=== PATIENT | male | born 1970 | race Caucasian/White ===

== ENCOUNTER 2018-06-17 03:19 | Emergency (ER) | payer MEDICAID, SELFPAY ==
[2018-06-17 03:20] VITALS: BP 150/110; PULSE 102; RESP 18; TEMP 36.9; O2SAT 96; BMI 32.3
[2018-06-17] MEDS: HYDROcodone Bitartrate/Apap 5/325 Tablet PO (03:41)
[2018-06-17] MEDS: Cephalexin 250 MG Capsule 500 MG PO (03:41)
[2018-06-17] MEDS: Smz/Tmp Ds Tablet 1 TABLET PO (03:41)
[2018-06-17] MEDS: Naproxen 500 MG Tablet PO (03:44)
--- NOTE | 2018-06-17 03:49 | ED.VISSUMM ---
- ER Visit Summary Date of Service: 06/17/18 Chief Complaint: Left knee pain and swelling History of Present Illness: The patient is a 48 M noted dry skin to his anterior knees. He started picking or scratching at the left anterior knee 2 days ago. Later that night the area became red and swollen. He tried to open the skin with a needle earlier tonight thinking there is an abscess. He has not had fever or chills. Physical Examination: Blood pressure is 150/110, temperature 98.4, heart rate 102, respiratory rate 18, pulse ox 96% on room air. Patient sitting upright in bed no acute distress. Heart is regular rate and rhythm. Lung sounds are clear. Abdomen is soft nontender. Left lower extremity examination reveals erythema and mild edema of the left anterior knee overlying the inferior patellar tendon. Area measures approximately 5 x 3 cm. Erythema does not extend onto the calf or up into the thigh. No lymphangitic streaking is noted. He has no tenderness along the joint line of the knee. He has good range of motion at the knee itself with no sign of infection in the knee joint. Test Results: [] Emergency Department Course and Treatment: Bedside ultrasound was performed and it is not reveal a focal fluid collection. Patient is treated with 1 tab of [place], Naprosyn, Bactrim, and Keflex. He will be treated with antibiotics and pain control. If symptoms worsen he is to return for repeat evaluation. Treatment Plan: [] Disposition: Discharge Impression: Cellulitis left knee This note was generated with [employer] dictation software. It may contain incorrect words, spelling, and punctuation that were not noted in review of the chart prior to signing ED Disposition - Plan for ED Patient: Chief Complaint: Lower Extremity Injury Referrals: Care Physician,No Primary [Primary Care Provider] -
--- NOTE | 2018-06-17 03:51 | ED.DEP ---
ED Disposition - Plan for ED Patient: Disposition: Home or Assisted Living Chief Complaint: Lower Extremity Injury Instructions: ED Infec Skin Cellulitis Prescriptions: Cephalexin [Keflex] 500 mg PO Q6 #40 capsule Hydrocodone/Acetaminophen [[place] 5-325 Tablet] 1 - 2 each PO 4X/DAY PRN PRN 3 Days #12 tablet PRN Reason: Pain Naproxen [Naprosyn] 500 mg PO BID PRN #20 tablet Smz/Tmp Ds [Bactrim Ds] 1 tablet PO BID #20 tablet Referrals: Leonidas Rodriguez MD [STAFF PHYSICIAN] - 3-5 Days if not improving
--- NOTE | 2018-06-17 03:54 | DCINST.ED_ITS ---
ED Disposition - Plan for ED Patient: Disposition: Home or Assisted Living Chief Complaint: Lower Extremity Injury Instructions: ED Infec Skin Cellulitis Prescriptions: Cephalexin [Keflex] 500 mg PO Q6 #40 capsule Hydrocodone/Acetaminophen [[place] 5-325 Tablet] 1 - 2 each PO 4X/DAY PRN PRN 3 Days #12 tablet PRN Reason: Pain Naproxen [Naprosyn] 500 mg PO BID PRN #20 tablet Smz/Tmp Ds [Bactrim Ds] 1 tablet PO BID #20 tablet Referrals: Leonidas Rodriguez MD [STAFF PHYSICIAN] - 3-5 Days if not improving
[2018-06-17 04:12] VITALS: RESP 18
== END 2018-06-17 04:50 | disposition home or self-care (01) ==
PROVIDERS: Emergency Provider Emergency Medicine
DX: L03.116 Cellulitis of left lower limb (principal); Z72.0 Tobacco use
CPT/HCPCS: 99283

== ENCOUNTER 2018-09-01 08:57 | Emergency (ER) | payer MEDICAID, SELFPAY ==
[2018-09-01 08:58] VITALS: BP 139/89; PULSE 91; RESP 16; TEMP 36.8; O2SAT 98; BMI 34.1
--- NOTE | 2018-09-01 09:16 | ED.DCSUM_ITS ---
- ER Visit Summary Date of Service: 09/01/18 Chief Complaint: Cough and congestion History of Present Illness: The patient is a 48 M history of a smoker 1 pack/day. Otherwise no significant past medical history. Patient states for 1 week he has had a cough and congestion. Coughing up green phlegm. Night sweats. He denies any hemoptysis. No chest pain other than rib cage discomfort with coughing. States he does not getting any better. Physical Examination: Middle-aged male. No acute distress. Vital signs are stable. He is afebrile. His pulse ox is 98% on room air no hypoxia. H EENT exam TMs are normal. Posterior pharynx moist and pink. No erythema or exudate. No trouble swallowing or breathing. No drooling or stridor. Nasal congestion. Neck nontender. No lymphadenopathy. Lungs coarse breath sounds but no rales, rhonchi or wheezing. Equal and symmetrical. Heart regular rate and rhythm no murmur. Abdomen soft and nontender. Normal bowel sounds no peritoneal signs. Patient is moving all 4 extremities are neurovascularly intact. Calves are nontender without edema or cords. Neurologically he is awake and alert. Back is nontender. Skin is unremarkable. Test Results: None. Clinically I did not feel he needed a x-ray and patient was comfortable with that plan. Emergency Department Course and Treatment: Patient has bronchitis. He has had this a week and is not improving and may even be getting worse. Clinically I do not hear pneumonia. He is a smoker. Due to the fact that he is a smoker and is not improving I will start him on Zithromax Z-LINDA. Treatment Plan: Zithromax. Stop smoking. Follow-up if not improving. Disposition: Discharge Impression: Acute bronchitis Tobacco abuse This note was generated with [employer] dictation software. It may contain incorrect words, spelling, and punctuation that were not noted in review of the chart prior to signing ED Disposition - Plan for ED Patient: Chief Complaint: Cold Sx Referrals: Care Physician,No Primary [Primary Care Provider] -
--- NOTE | 2018-09-01 09:16 | ED.DEP ---
ED Disposition - Plan for ED Patient: Disposition: Home or Assisted Living Chief Complaint: Cold Sx Instructions: ED Upper Resp Infec Abx Tx Prescriptions: Azithromycin [Zithromax Z-Gary] 250 mg PO UD #1 box Referrals: Care Physician,No Primary [Primary Care Provider] - 1 Week if not improving Additional Instructions: Absolutely positively need to stop smoking. Zithromax 2 pills the first day and then 1 pill a day until gone. Plenty of fluids and rest. Follow-up your doctor if not improving in 1 week.
--- OUTSIDE RECORDS SUMMARY | 2018-10-25 22:42 | XMS RPT_ITS ---
:1970 Author Organization [facility] Care Team Providers Name Role Phone Primay Care Physicia, No Primary Care Unavailable Patito Burnett Attending Unavailable Primay Care Physicia, No Primary Care Unavailable Kevin Verdugo Attending Unavailable PROBLEMS PROBLEMS DATE TYPE CONDITION / CODE ATTENDING STATUS SOURCE 06/17/2018 Unknown L03.116 - Patito Burnett Active [facility] Cellulitis of [facility] left lower limb / Hospital L03.116(ICD-10) Repository PROCEDURES PROCEDURES No Procedure Records FoundRESULTS RESULTS EMERGENCY DEPARTMENT Observed: 09/01/2018 Status: F Source: [place] SUMMARY 4:37 PM [facility] REPOSITORY [facility] Medical Records Department [address] [place] [address] Emergency Department Summary 09/01/18 0913 MR#: [id number] Acct: [id number] Name: MAULIK ELIZONDO III Rep #: [id number] : 1970 48 From: Kevin Verdugo MD PCP: Care Physician, No Primary Status: DEP ER - ER Visit Summary Date of Service: 09/01/18 Chief Complaint: Cough and congestion History of Present Illness: The patient is a 48 M history of a smoker 1 pack/day. Otherwise no significant past medical history. Patient states for 1 week he has had a cough and congestion. Coughing up green phlegm. Night sweats. He denies any hemoptysis. No chest pain other than rib cage discomfort with coughing. States he does not getting any better. Physical Examination: Middle-aged male. No acute distress. Vital signs are stable. He is afebrile. His pulse ox is 98% on room air no hypoxia. H EENT exam TMs are normal. Posterior pharynx moist and pink. No erythema or exudate. No trouble swallowing or breathing. No drooling or stridor. Nasal congestion. Neck nontender. No lymphadenopathy. Lungs coarse breath sounds but no rales, rhonchi or wheezing. Equal and symmetrical. Heart regular rate and rhythm no murmur. Abdomen soft and nontender. Normal bowel sounds no peritoneal signs. Patient is moving all 4 extremities are neurovascularly intact. Calves are nontender without edema or cords. Neurologically he is awake and alert. Back is nontender. Skin is unremarkable. Test Results: None. Clinically I did not feel he needed a x-ray and patient was comfortable with that plan. Emergency Department Course and Treatment: Patient has bronchitis. He has had this a week and is not improving and may even be getting worse. Clinically I do not hear pneumonia. He is a smoker. Due to the fact that he is a smoker and is not improving I will start him on Zithromax Z-GARY. Treatment Plan: Zithromax. Stop smoking. Follow-up if not improving. Disposition: Discharge Impression: Acute bronchitis Tobacco abuse This note was generated with [employer] dictation software. It may contain incorrect words, spelling, and punctuation that were not noted in review of the chart prior to signing ED Disposition - Plan for ED Patient: Chief Complaint: Cold Sx Referrals: Care Physician,No Primary [Primary Care Provider] - What to do if you have Problems For any increased pain, shortness of breath, bleeding, nausea or vomiting, chest pain, or any unexpected problems, contact your Primary Care Provider. Call [facility] ([phone]) or report to the closest Emergency Room. Call 911 if necessary. 09/01/18 9188 <Electronically signed by Kevin Verdugo MD> Date Kevin Verdugo MD Cosigner Signature (If Indicated): Date CC: No Primary Care Physician DISCHARGE INSTRUCTION Observed: 09/01/2018 Status: F Source: WADE 4:37 PM [facility] Medical Records Department [address] [place] [address] Discharge Instruction 09/01/18 0916 MR#: [id number] Acct: [id number] Name: MAULIK ELIZONDO III Rep #: [id number] : 1970 48 From: Kevin Verdugo MD PCP: Care Physician, No Primary Status: DEP ER ED Disposition - Plan for ED Patient: Disposition: Home or Assisted Living Chief Complaint: Cold Sx Instructions: ED Upper Resp Infec Abx Tx Prescriptions: Azithromycin [Zithromax Z-Gary] 250 mg PO UD #1 box Referrals: Care Physician,No Primary [Primary Care Provider] - 1 Week if not improving Additional Instructions: Absolutely positively need to stop smoking. Zithromax 2 pills the first day and then 1 pill a day until gone. Plenty of fluids and rest. Follow-up your doctor if not improving in 1 week. What to do if you have Problems For any increased pain, shortness of breath, bleeding, nausea or vomiting, chest pain, or any unexpected problems, contact your Primary Care Provider. Call [facility] ([phone]) or report to the closest Emergency Room. Call 911 if necessary. 09/01/18 7647 <Electronically signed by Kevin Verdugo MD> Date Kevin Verdugo MD Cosigner Signature (If Indicated): Date CC: No Primary Care Physician EMERGENCY DEPARTMENT Observed: 06/17/2018 Status: F Source: [place] SUMMARY 8:26 AM [facility] Medical Records Department [address] [place] [address] Emergency Department Summary 06/17/18 0349 MR#: [id number] Acct: [id number] Name: MAULIK ELIZONDO III Rep #: [id number] : 1970 48 From: Patito Burnett MD PCP: Care Physician, No Primary Status: DEP ER - ER Visit Summary Date of Service: 06/17/18 Chief Complaint: Left knee pain and swelling History of Present Illness: The patient is a 48 M noted dry skin to his anterior knees. He started picking or scratching at the left anterior knee 2 days ago. Later that night the area became red and swollen. He tried to open the skin with a needle earlier tonight thinking there is an abscess. He has not had fever or chills. Physical Examination: Blood pressure is 150/110, temperature 98.4, heart rate 102, respiratory rate 18, pulse ox 96% on room air. Patient sitting upright in bed no acute distress. Heart is regular rate and rhythm. Lung sounds are clear. Abdomen is soft nontender. Left lower extremity examination reveals erythema and mild edema of the left anterior knee overlying the inferior patellar tendon. Area measures approximately 5 x 3 cm. Erythema does not extend onto the calf or up into the thigh. No lymphangitic streaking is noted. He has no tenderness along the joint line of the knee. He has good range of motion at the knee itself with no sign of infection in the knee joint. Test Results: [] Emergency Department Course and Treatment: Bedside ultrasound was performed and it is not reveal a focal fluid collection. Patient is treated with 1 tab of [place], Naprosyn, Bactrim, and Keflex. He will be treated with antibiotics and pain control. If symptoms worsen he is to return for repeat evaluation. Treatment Plan: [] Disposition: Discharge Impression: Cellulitis left knee This note was generated with [employer] dictation software. It may contain incorrect words, spelling, and punctuation that were not noted in review of the chart prior to signing ED Disposition - Plan for ED Patient: Chief Complaint: Lower Extremity Injury Referrals: Care Physician,No Primary [Primary Care Provider] - What to do if you have Problems For any increased pain, shortness of breath, bleeding, nausea or vomiting, chest pain, or any unexpected problems, contact your Primary Care Provider. Call [facility] ([phone]) or report to the closest Emergency Room. Call 911 if necessary. 06/17/18825 <Electronically signed by Patito Burnett MD> Date Patito Burnett MD Cosigner Signature (If Indicated): Date CC: No Primary Care Physician DISCHARGE INSTRUCTION Observed: 06/17/2018 Status: F Source: [place] 3:54 AM [facility] Medical Records Department [address] [place] [address] [place] [address] Discharge Instruction 06/17/18 035 MR#: [id number] Acct: [id number] Name: MAULIK ELIZONDO III Rep #: [id number] : 1970 48 From: Patito Burnett MD PCP: Care Physician, No Primary Status: REG ER ED Disposition - Plan for ED Patient: Disposition: Home or Assisted Living Chief Complaint: Lower Extremity Injury Instructions: ED Infec Skin Cellulitis Prescriptions: Cephalexin [Keflex] 500 mg PO Q6 #40 capsule Hydrocodone/Acetaminophen [[place] 5-325 Tablet] 1 - 2 each PO 4X/DAY PRN PRN 3 Days #12 tablet PRN Reason: Pain Naproxen [Naprosyn] 500 mg PO BID PRN #20 tablet Smz/Tmp Ds [Bactrim Ds] 1 tablet PO BID #20 tablet Referrals: Leonidas Rodriguez MD [STAFF PHYSICIAN] - 3-5 Days if not improving What to do if you have Problems For any increased pain, shortness of breath, bleeding, nausea or vomiting, chest pain, or any unexpected problems, contact your Primary Care Provider. Call [facility] ([phone]) or report to the closest Emergency Room. Call 911 if necessary. 06/17/18 0354 <Electronically signed by Patito Burnett MD> Date Patito Burnett MD Cosigner Signature (If Indicated): Date CC: No Primary Care Physician ALLERGIES ALLERGIES DATE TYPE / CODE NAME / CODE REACTION SEVERITY SOURCE 09/01/2018 Drug No Known Unknown [facility] Allergy/4160 Allergies/F00 [facility] [address](SNOMED [id number](RXNOR Repository CT) M) ENCOUNTERS ENCOUNTERS ADMIT/DISCHARGE ACCOUNT ADMITTING ENCOUNTER LOCATION SOURCE NUMBER CLASS 09/01/2018/ [id number] Emergency [address] ing:ED Repository 06/17/2018/ [id number] Emergency [address] ing:ED Repository PAYERS PAYERS ENCOUNTER GUARANTOR PAYER SUBSCRIBER SOURCE [facility]01/2018 [facility] [id number] BILLIAR Insurance:CARESOURCEP IIIDOB: [facility] Number: [id number] [address]Ied: [phone] [id number] Repository [phone] () Date:2018-09-01 [address]ATTN: [place] [address]ZF: 09/01/2018 Secondary NOT GIVENUNK [place] Insurance:SELF PAY [facility] Number: Effective Repository Date:2018-09-01 06/17/2018 MAULIK [facility] MAULIK ELIZONDO [facility] [id number] BILLIAR Insurance:CARESOURCEP IIIDOB: [facility] Number: [id number] Hospital [address]Onq: [phone] [id number] Repository [phone] () Date:2018-06-17P [address]ATTN: [place] [address]SJ: 06/17/2018 Secondary NOT GIVENUNK [facility] Insurance:SELF PAY [facility]: Effective Repository Date:2018-06-17
== END 2018-09-01 09:30 | disposition home or self-care (01) ==
LOC: ED 09:28
PROVIDERS: Emergency Provider Emergency Medicine
DX: J20.9 Acute bronchitis, unspecified (principal); F17.200 Nicotine dependence, unspecified, uncomplicated; R19.7 Diarrhea, unspecified
CPT/HCPCS: 99282

== ENCOUNTER 2019-04-25 01:34 | Emergency (ER) | payer MEDICAID, SELFPAY ==
[2019-04-25 01:35] VITALS: BP 139/94; PULSE 95; RESP 16; TEMP 36.8; O2SAT 97; BMI 32.3
--- NOTE | 2019-04-25 02:34 | ED.VISSUMM ---
- ER Visit Summary Date of Service: 04/25/19 Chief Complaint: Left leg wound History of Present Illness: The patient is a 49 M who presents with a left leg wound. He initially noted it yesterday. There is some surrounding redness and mild pain. He does not recall any injury but states that he was scratching the leg with the other foot recently and felt something. Physical Examination: Afebrile vitals unremarkable Patient has an open wound over the lateral left lower leg about a centimeter across with some surrounding erythema no drainage not hot to the touch no streaking Test Results: Not indicated Emergency Department Course and Treatment: Patient has an open wound with some surrounding cellulitis. We will treat with Keflex. She understands to return for new or worsening symptoms and was discharged home. Treatment Plan: [] Disposition: Discharge Impression: Left leg wound Cellulitis This note was generated with [employer] dictation software. It may contain incorrect words, spelling, and punctuation that were not noted in review of the chart prior to signing ED Disposition - Plan for ED Patient: Referrals: Care Physician,No Primary [Primary Care Provider] -
--- NOTE | 2019-04-25 02:35 | ED.DEP ---
ED Disposition - Plan for ED Patient: Instructions: Cellulitis Prescriptions: Cephalexin [Keflex] 500 mg PO Q6 #40 cap Prescription Printed Referrals: Care Physician,No Primary [Primary Care Provider] -
[2019-04-25 03:02] VITALS: RESP 16
== END 2019-04-25 03:03 | disposition home or self-care (01) ==
PROVIDERS: Emergency Provider Emergency Medicine
DX: L03.116 Cellulitis of left lower limb (principal); Z72.0 Tobacco use; S81.802A Unspecified open wound, left lower leg, initial encounter; X58.XXXA Exposure to other specified factors, initial encounter; Y93.89 Activity, other specified; Y92.9 Unspecified place or not applicable; Y99.9 Unspecified external cause status
CPT/HCPCS: 99282

== ENCOUNTER 2019-07-22 14:10 | Emergency (ER) | payer MEDICAID, SELFPAY ==
[2019-07-22 14:11] VITALS: BP 125/90; PULSE 86; RESP 20; TEMP 36.6; O2SAT 96; BMI 35.5
--- NOTE | 2019-07-22 14:51 | CT_ITS ---
STUDY: CT ABDOMEN AND PELVIS WITHOUT CONTRAST REASON FOR EXAM: Male, 49 years old. Nausea and vomiting. Weakness. Abdominal pain. RADIATION DOSAGE (If Supplied By Facility): CTDIvol = ( 13.95 ) mGy, DLP = ( 728.24 ) mGycm TECHNIQUE: Transaxial images were obtained from the dome of the diaphragm to the symphysis pubis without oral contrast, and without intravenous contrast. Sagittal and coronal images were reconstructed. Individualized dose optimization techniques were used for this CT. COMPARISON: Comparison is made with prior examination dated July 08, 2015. FINDINGS: Patchy airspace disease in the left lower lobe. The visualized portions of the heart are within normal limits. There is decreased attenuation of the liver consistent with steatosis. Normal gallbladder and extrahepatic biliary system. Normal spleen. Normal pancreas. There is a small, circumscribed, smooth, low attenuation left adrenal mass, consistent with an adrenal adenoma. This measures 1.7 cm x 3 cm. Normal right adrenal gland. Normal right kidney. Normal left kidney. Normal visualized stomach. Normal small intestine. Normal colon. The appendix is visualized and appears normal. There is scattered atherosclerotic calcification of the abdominal aorta, without a demonstrated aneurysm. Normal inferior vena cava. There is borderline retroperitoneal lymphadenopathy with enlarged nodes no greater than 10mm in the short axis diameter. Normal urinary bladder. There is a small umbilical hernia containing fat. Small bilateral inguinal hernias containing fat. Normal osseous structures. CT/Abdomen/Pelvis without Cont IMPRESSION: Patchy airspace disease in the left lower lobe. Small bilateral inguinal hernias containing fat as well as small umbilical hernia. Electronically Signed: Norris Garcia, at 15:39 EDT , Service support ,
[2019-07-22] MEDS: Ketorolac 15 MG/ML Vial IV (15:07)
[2019-07-22] MEDS: 0.9% Normal Saline 1,000 ML 1000 ML IV (15:07)
[2019-07-22] MEDS: Ondansetron 4 MG/2 ML Vial IV (15:07)
[2019-07-22 15:12] LABS: Absolute Lymphocyte Count 3.12 X10^3/uL (0.83-4.51); Absolute Neutrophil Count 6.8 X10^3/uL (2.0-7.7); Basophil# 0.06 X10^3/uL; Basophil% 0.5 % (0-1); Eosinophil# 0.35 X10^3/uL; Eosinophils% 3.1 % (0-5); Hematocrit 46.9 % (40-54); Hemoglobin 16.4 g/dL (13.0-16.5); Lymphocyte # 3.12 X10^3/ul (4.0); Lymphocyte % 27.8 % (19-41); Mean Corpuscular Hgb 31.5 pg (27.0-32.0); Mean Corpuscular Volume 90.2 fL (80-94); Mean Platelet Vol. 9.3 fl (6.2-12.0); NRBC Flagged by Analyzer 0 % (0-5); Neutrophil # 6.78 X10^3/uL (2.7-7.7); Neutrophil % 60.3 % (47-70); Platelet Count 270 K/mm3 (150-450); RBC Distribution Width CV 15.4 % (11.6-14.6); RBC Distribution Width SD 43.7 fl (35.1-43.9); White Blood Count 11.2 K/mm3 (4.4-11.0)
--- NOTE | 2019-07-22 15:21 | ED.DCSUM_ITS ---
History of Present Illness Chief Complaint: Nausea/Vomiting Narrative: Patient presenting for evaluation secondary to abdominal pain nausea vomiting. Patient reports that since yesterday after he ate at [employer] he has had intense abdominal pain with multiple episodes of nonbloody nonbilious emesis. Patient denies any diarrhea. He does endorse that he has been having subjective fevers and sweats. Patient states that he ate at [employer] with his daughter, who does not have similar symptoms at this time. No exacerbating relieving factors. Review of systems otherwise negative. Past Medical History - Allergies and Home Meds Allergies/Adverse Reactions: Allergies No Known Allergies Allergy (Verified 07/22/19 14:13) Primary Care Physician: Care Physician,No Primary [Primary Care Provider] - Past Medical History: None Smoking Status: Current every day smoker Review of Systems All systems negative except as indicated General: Reports: Fever, Malaise, Sweats Gastrointestinal: Reports: Abdominal pain, Nausea, Vomiting Physical Exam Vital Signs/Narrative: Vital Signs Temp Pulse Resp BP Pulse Ox 07/22/19 14:11 98 F 86 20 H 125/90 H 96 Inital Vital Signs reviewed: Yes General: Well nourished, Well developed, Acute Distress Head: Normocephalic, Atraumatic Eyes: Perrl, EOMI ENT: Moist mucous membranes, No rhinorrhea Neck: Supple, Nontender Cardiovascular: Regular rate, Regular rhythm, No murmurs Respiratory: No distress, CTA bilaterally, Chest nontender Abdomen: Nondistended, Normal bowel sounds, Tender - Diffuse nonlocalizing Back: Nontender, Normal Inspection Extremities: Nontender, No edema Skin: Normal color, No rash, Diaphoresis, - - Piloerection Neurological: Alert, Oriented x3, Cranial nerves II-XII grossly intact, Normal Strength, Normal Sensation Psychological: Normal affect, Normal Mood Diagnostic/Tx/Re-eval - Medical Decision Making Patient presented secondary to abdominal pain nausea and vomiting. On initial arrival the patient was diaphoretic and seems somewhat distressed. Patient was given Toradol and Zofran and fluids. Work-up including CBC CMP and lipase was grossly unremarkable with a modest elevation of the patient's lipase to 300, and leukocytosis of 11. CT abdomen and pelvis shows some fat-containing inguinal and ventral hernias with no other evidence of acute pathology. Repeat evaluation of the patient at 1600 showed significant improvement with the patien t laying comfortably in bed no longer diaphoretic, with a nonsurgical abdomen. At this point I believe the patient is safe and appropriate for discharge. Patient will be discharged with a course of Zofran. He was given signs and symptoms which to return. He voiced understanding was discharged. ED Disposition - Plan for ED Patient: Disposition: Home or Assisted Living Diagnosis: Gastroenteritis Instructions: FOOD POISONING or GASTROENTERITIS (4y-Adult) Prescriptions: Ondansetron [Zofran Odt] 4 mg PO Q8H PRN PRN #10 tab PRN Reason: Nausea Prescription Printed Referrals: Komal Everett [NON-STAFF] - As Needed
[2019-07-22 15:27] LABS: ALB/GLOB Ratio 0.9 RATIO (0.9-2.4); AST(SGOT) 32 U/L (15-37); Alanine Aminotransfer ALT/SGPT 57 U/L (16-61); Albumin, Serum 3.6 g/dL (3.2-5.0); Alkaline Phosphatase 91 U/L (45-117); Anion Gap 7 (5-15); BUN 15 mg/dL (7-18); BUN/Creat Ratio 15.5 RATIO (10-20); Calcium,Total 8.5 mg/dL (8.5-10.1); Chloride 106 mmol/L (98-107); Creatinine, Serum 0.97 mg/dL (0.70-1.30); EST Glomerular Filtration Rate 87 mL/min (>60); Est Glom Filt Rate - Afr Amer 105 mL/min (>60); Globulin 4.1 g/dL (2.2-4.2); Glucose 111 mg/dL (74-106); Lipase 394 U/L (73-393); Potassium 3.8 mmol/L (3.5-5.1); Protein, Total 7.7 g/dL (6.4-8.2); Sodium Level 138 mmol/L (136-145)
[2019-07-22 16:11] VITALS: BP 137/89; PULSE 94; RESP 16; O2SAT 97
== END 2019-07-22 16:57 | disposition home or self-care (01) ==
PROVIDERS: Emergency Provider Emergency Medicine
DX: K52.9 Noninfective gastroenteritis and colitis, unspecified (principal); K40.20 Bilateral inguinal hernia, without obstruction or gangrene, not specified as recurrent; K43.9 Ventral hernia without obstruction or gangrene; F17.200 Nicotine dependence, unspecified, uncomplicated
CPT/HCPCS: 74176; 80053; 83690; 85025; 96361; 96374; 96375; 99283; J7030; J2405

== ENCOUNTER 2019-07-24 07:34 | Emergency (ER) | payer MEDICAID, SELFPAY ==
[2019-07-24 07:36] VITALS: BP 137/93; PULSE 80; RESP 18; TEMP 36.7; O2SAT 94; BMI 33.7
--- NOTE | 2019-07-24 08:11 | ED.DCSUM_ITS ---
History of Present Illness Chief Complaint: Abd Pain Informant: Patient Onset: Days - 2-3 Context: Gradual Onset Timing: Intermittent Quality: ache Location: LUQ Current Severity: gone Maximum Severity: Severe Worsened by: nothing Relieved by: nothing in particular; just went away just prior to coming to ED Associated Symptoms: prod cough, dry heaving Narrative: Patient was seen here around 24 hours ago for similar symptoms. He states he abraham s been having a productive cough for 4 days or so, the left upper quadrant abdominal discomfort started later. He was up all night because of significant discomfort in his left upper quadrant area, but he states now for some reason it is gone. He denies any fevers or dyspnea, leg swelling, lower abdominal pain. He has had a poor appetite and is not eating much but he is able to pass fluids. He has not had a bowel movement in a couple days because he has not been eating much. Past Medical History - Allergies and Home Meds Allergies/Adverse Reactions: Allergies No Known Allergies Allergy (Verified 07/24/19 07:35) Primary Care Physician: Care Physician,No Primary [Primary Care Provider] - Smoking Status: Current every day smoker Review of Systems General: Reports: Malaise. Denies: Chills, Fever, Sweats Eyes: Denies: Visual changes - bilaterally, Diplopia ENT: Denies: Bilateral ear pain, Rhinorrhea, Sore throat Cardiovascular: Denies: Chest pain, Palpitations, Heart racing Respiratory: Reports: Cough, Sputum - phlegm, no blood. Denies: Dyspnea, Dyspnea on exertion Gastrointestinal: Reports: Abdominal pain, Nausea, Vomiting - dry heaves, - - anorexia. Denies: Diarrhea, Melena, Hematochezia Genitourinary: Denies: Dysuria, Hematuria, Frequency Musculoskeletal: Denies: Neck pain, Back pain, Swelling, Extremity Pain Skin: Denies: Rash, Wounds Neurological: Denies: Headache, Weakness, Numbness Physical Exam Vital Signs/Narrative: Vital Signs Temp Pulse Resp BP Pulse Ox 07/24/19 07:36 98.1 F 80 18 137/93 H 94 General: Well nourished, Well developed, No Acute Distress Head: Normocephalic, Atraumatic Eyes: Perrl, EOMI ENT: Moist mucous membranes, No rhinorrhea Neck: Supple, Nontender Cardiovascular: Regular rate, Regular rhythm, No murmurs Respiratory: No distress, Chest nontender, Rales - left base w/ occasional wheeze; otherwise, clear Abdomen: Soft, Nontender, Nondistended, Normal bowel sounds Back: Nontender, Normal Inspection Extremities: Nontender, No edema. Negative for: Calf Tenderness Skin: Normal color, No rash Neurological: Alert, Oriented x3, Cranial nerves II-XII grossly intact, Normal Strength, Normal Sensation, Normal Gait Psychological: Normal affect, Normal Mood Diagnostic/Tx/Re-eval - Medical Decision Making I reviewed testing from 2 days ago. He had a mild leukocytosis, mild lipase elevation, and everything else looked fairly unremarkable except for his CT abdomen/pelvis which showed a left lower lobe infiltrate. Clinically, his abdomen is benign today and he has Rales in the left base. I suspect his pain is also related to this. I think treating pneumonia would probably be the care for the symptoms. Today his vital signs are normal. He is conversing in full sentences and is well-appearing. I do not think he needs further work-up right now but I think putting him on antibiotics is indicated and reasonable given all of this. I discussed all this with him and he is in agreement with this plan and close outpatient follow-up, we discussed reasons to return. He was given the first dose of Zithromax here and a prescription for the rest, this may be the easiest most appropriate antibiotic for him to fill and to tolerate given his nausea as well. ED Disposition - Plan for ED Patient: Disposition: Home or Assisted Living Diagnosis: CAP (community acquired pneumonia), Intermittent left upper quadrant abdominal pain Instructions: PNEUMONIA (Adult) Prescriptions: Azithromycin 250 mg PO DAILY #4 tab Prescription Printed Referrals: Komal Everett [NON-STAFF] - 3-5 Days
== END 2019-07-24 08:46 | disposition home or self-care (01) ==
PROVIDERS: Emergency Provider Emergency Medicine
DX: J18.9 Pneumonia, unspecified organism (principal); R10.12 Left upper quadrant pain; F17.200 Nicotine dependence, unspecified, uncomplicated
CPT/HCPCS: 99282; A4216

== ENCOUNTER 2019-07-25 10:38 | Emergency (ER) | payer MEDICAID, SELFPAY ==
[2019-07-24 07:36] VITALS: BMI 33.7
[2019-07-25 10:39] VITALS: BP 126/89; PULSE 100; RESP 17; TEMP 36.7; O2SAT 97; BMI 32.3
--- NOTE | 2019-07-25 11:32 | RAD_ITS ---
STUDY: X-RAY CHEST REASON FOR EXAM: Male, 49 years old. Chest pain TECHNIQUE: Single AP portable view of the chest. COMPARISON: 07/08/2015 FINDINGS: The lungs are clear and expanded. There is no demonstrated pleural abnormality. Normal size heart. Normal mediastinum and santhosh. Normal visualized pulmonary arteries. Normal visualized aortic arch and descending thoracic aorta. Normal visualized thoracic spine. Normal visualized ribs, clavicles, and shoulders. There is no demonstrated abnormality of the visualized soft tissue structures of the upper abdomen. RAD/Chest 1 View (Portable) IMPRESSION: Normal x-ray examination of the chest. Electronically Signed: Dallas Knight MD at 11:49 EDT Tel , Service support ,
[2019-07-25] MEDS: 0.9% Normal Saline 1,000 ML 1000 ML IV (11:44)
[2019-07-25] MEDS: morphine 8 MG/ML Syringe IV (11:50)
[2019-07-25] MEDS: Ondansetron 4 MG/2 ML Vial IV (11:50)
[2019-07-25 12:00] LABS: Absolute Neutrophil Count 5.7 X10^3/uL (2.0-7.7); Basophil# 0.07 X10^3/uL; Basophil% 0.6 % (0-1); Eosinophil# 0.56 X10^3/uL; Hematocrit 47.5 % (40-54); Hemoglobin 17.1 g/dL (13.0-16.5); Lymphocyte % 35.8 % (19-41); Mean Corpuscular Hgb 32.8 pg (27.0-32.0); Mean Platelet Vol. 9.3 fl (6.2-12.0); Monocyte# 0.81 X10^3/uL; Monocyte% 7.3 % (0-10); NRBC Flagged by Analyzer 0 % (0-5); POSITIVE MORPHOLOGY YES; Platelet Count 295 K/mm3 (150-450); RBC Distribution Width SD 43.1 fl (35.1-43.9); Red Blood Count 5.22 M/mm3 (4.6-6.2); White Blood Count 11.2 K/mm3 (4.4-11.0)
[2019-07-25 12:18] LABS: AST(SGOT) 23 U/L (15-37); Alanine Aminotransfer ALT/SGPT 46 U/L (16-61); Albumin, Serum 3.3 g/dL (3.2-5.0); Alkaline Phosphatase 79 U/L (45-117); Anion Gap 5 (5-15); BUN 13 mg/dL (7-18); BUN/Creat Ratio 12.4 RATIO (10-20); Bilirubin, Direct 0.13 mg/dL (0.00-0.30); Calcium,Total 8.6 mg/dL (8.5-10.1); Chloride 104 mmol/L (98-107); Creatinine, Serum 1.05 mg/dL (0.70-1.30); EST Glomerular Filtration Rate 79 mL/min (>60); Est Glom Filt Rate - Afr Amer 96 mL/min (>60); Estimated Creatinine Clearance 75.11 ml/min; Globulin 3.7 g/dL (2.2-4.2); Glucose 106 mg/dL (74-106); Lipase 158 U/L (73-393); Sodium Level 139 mmol/L (136-145)
[2019-07-25 12:31] LABS: Differential Indicated SCAN CRITERIA MET
--- NOTE | 2019-07-25 13:16 | EKG12_ITS ---
Test Reason : CP Blood Pressure : / mmHG Vent. Rate : 090 BPM Atrial Rate : 090 BPM P-R Int : 140 ms QRS Dur : 088 ms QT Int : 366 ms P-R-T Axes : 067 072 038 degrees QTc Int : 447 ms Normal sinus rhythm with sinus arrhythmia Normal ECG Confirmed by VAN DANIEL, HAWK ([id number]), newspaper editor managing SANYA MCHUGH ([id number]) on 07/29/2019 10:51:32 AM Referred By: JULIET Confirmed By:HAWK ARAUJO MD
--- NOTE | 2019-07-25 13:23 | ED.DCSUM_ITS ---
- ER Visit Summary Date of Service: 07/25/19 Chief Complaint: Upper quadrant abdominal pain History of Present Illness: The patient is a 49 M third visit to the emergency department with left upper quadrant abdominal pain is recent evaluations have been unremarkable along with a CAT scan of his abdomen that was done the last several days. He is also stating that he had nausea vomiting. Denies any hematemesis. No fever. No melena. His only prior abdominal surgeries for hernia. Physical Examination: Middle-aged male complaint pain vital signs stable afebrile. Does not look septic or toxic. Does not look dehydrated. H EENT exam unremarkable. Moist his memories. Neck nontender no lymphadenopathy. Lungs clear to auscultation bilaterally. Heart regular rhythm rate about 100 no murmur. Abdomen is soft. Nondistended normal bowel sounds no peritoneal signs. Mild tenderness left upper quadrant. No organomegaly or masses. No signs of obstruction. Both right upper right lower quadrant unremarkable. Patient is moving all 4 extremities. Skin no rashes. Multiple tattoos. Back nontender. Neurologic exam normal. Test Results: CBC White count of 11. Hemoglobin 17. No bands. Chemistries normal. Liver enzymes normal. Lipase normal at 158 it was 394 the other day actually better. Troponin normal. Chest x-ray normal cardiac silhouette. EKG sinus rhythm rate of 90 with no acute signs of IL or ischemia. Emergency Department Course and Treatment: Patient was treated with IV morphine, Zofran and fluids. He is feeling much better on repeat exam his abdomen is benign. He and I went over all this test. I also reviewed his work-up from the other day including the CAT scan. There was really no specific diagnosis at that time. Given Protonix. Clinic I think this may be gastritis. Treatment Plan: Protonix daily. Follow-up with a local primary care physician. Return if worse. If hematemesis or melena. Disposition: Discharge Impression: Left upper quadrant abdominal pain uncertain etiology Rule out gastritis This note was generated with [employer] dictation software. It may contain incorrect words, spelling, and punctuation that were not noted in review of the chart prior to signing ED Disposition - Plan for ED Patient: Referrals: Care Physician,No Primary [Primary Care Provider] -
--- NOTE | 2019-07-25 13:26 | ED.DEP ---
ED Disposition - Plan for ED Patient: Disposition: Home or Assisted Living Instructions: ABDOMINAL PAIN, Unkown Cause, (Male), GASTRITIS (Adult) Prescriptions: Pantoprazole Sodium [Protonix] 40 mg PO DAILY #30 tab Prescription Printed Referrals: Jorge Rosales MD [STAFF PHYSICIAN] - As soon as possible Additional Instructions: Call follow-up with a local primary care physician. Protonix daily should help with this is either gastritis which is inflammation in your stomach or possibly an ulcer. Return to the ER if you throw up blood or have black or bloody stool. All your tests were normal today and your CAT scan the other day was normal.
[2019-07-25] MEDS: Pantoprazole Sodium 40 MG Tablet PO (13:49)
[2019-07-25 13:50] VITALS: BP 131/83; PULSE 81; RESP 14; O2SAT 97
== END 2019-07-25 13:51 | disposition home or self-care (01) ==
PROVIDERS: Emergency Provider Emergency Medicine
DX: R10.12 Left upper quadrant pain (principal); R11.2 Nausea with vomiting, unspecified; F17.210 Nicotine dependence, cigarettes, uncomplicated
CPT/HCPCS: 71045; 80048; 80076; 83690; 84484; 85025; 93005; 99284; J2405

== ENCOUNTER 2020-08-19 13:20 | Emergency (ER) | payer SELFPAY ==
[2020-08-19 13:22] VITALS: BP 155/115; PULSE 86; PULSE 88; RESP 28; TEMP 35.6; O2SAT 99; BMI 32.3
--- NOTE | 2020-08-19 13:49 | CT_ITS ---
STUDY: CT ABDOMEN AND PELVIS WITH CONTRAST REASON FOR EXAM: Male, 50 years old. Right abdominal pain today, elevated WBC. Prior hernia repair as a child. RADIATION DOSAGE (If Supplied By Facility): CTDIvol = ( 20.59 ) mGy, DLP = ( 1145.39 ) mGycm TECHNIQUE: Transaxial images were obtained from the dome of the diaphragm to the symphysis pubis with oral contrast. Oral and amp; IV Gastrografin and amp; 100mL Isovue-300 was administered. Sagittal and coronal images were reconstructed. Individualized dose optimization techniques were used for this CT. COMPARISON: Comparison is made with prior study dated 07/22/2019. FINDINGS: The visualized lung bases are unremarkable. The visualized portions of the heart are within normal limits. There is decreased attenuation of the liver consistent with steatosis. Hepatomegaly. Normal gallbladder and extrahepatic biliary system. Normal spleen. Normal pancreas. There is a small, circumscribed, smooth, low attenuation left adrenal mass, consistent with an adrenal adenoma. It measures 2.5 cm. This is unchanged. Normal right adrenal gland. Stable small right renal cyst. Normal left kidney. Normal visualized stomach. Normal small intestine. Normal colon. The appendix is visualized and appears normal. There is scattered atherosclerotic calcification of the abdominal aorta, without a demonstrated aneurysm. Normal inferior vena cava. There is borderline retroperitoneal lymphadenopathy with enlarged nodes no greater than 10mm in the short axis diameter. Normal urinary bladder. Bilateral inguinal hernias containing fat more prominent on the right side. Normal osseous structures. CT/Abdomen/Pelvis WITH Contrast IMPRESSION: Hepatomegaly and fatty infiltration of the liver. Stable left adrenal adenoma. Electronically Signed: Norris Garcia, at 15:47 EST , Service support ,
[2020-08-19] MEDS: Ondansetron 4 MG/2 ML Vial IV (14:03)
[2020-08-19] MEDS: Morphine 4 MG/ML Syringe IV ×2 (14:03→15:20)
[2020-08-19] MEDS: 0.9% Normal Saline 1,000 ML 1000 ML IV (14:04)
[2020-08-19 14:07] LABS: Absolute Neutrophil Count 8.2 X10^3/uL (2.0-7.7); Basophil# 0.06 X10^3/uL; Basophil% 0.4 % (0-1); Eosinophil# 0.28 X10^3/uL; Hematocrit 49.3 % (40-54); Hemoglobin 16.8 g/dL (13.0-16.5); Mean Corp Hgb Conc 34.1 g/dL (32-36); Mean Corpuscular Hgb 29.8 pg (27.0-32.0); Mean Corpuscular Volume 87.6 fL (80-94); Mean Platelet Vol. 10.2 fl (6.2-12.0); Monocyte# 0.92 X10^3/uL; Monocyte% 6.5 % (0-10); NRBC Flagged by Analyzer 0 % (0-5); Neutrophil # 8.23 X10^3/uL (2.7-7.7); Neutrophil % 57.7 % (47-70); Platelet Count 274 K/mm3 (150-450); RBC Distribution Width SD 41.6 fl (35.1-43.9); Red Blood Count 5.63 M/mm3 (4.6-6.2); White Blood Count 14.3 K/mm3 (4.4-11.0)
[2020-08-19 14:15] LABS: Bacteria 0 SEEN /hpf (None Seen); Mucous, Urine 0 SEEN /hpf (<or=2+); Red Blood Cells-Urine 0 SEEN /hpf (0-5); Squamous Epithelial Cells - UA 0 SEEN /hpf (0-5); White Blood Cells 0 SEEN /hpf (0-5)
[2020-08-19 14:17] LABS: ALB/GLOB Ratio 0.9 RATIO (0.9-2.4); AST(SGOT) 20 U/L (15-37); Alanine Aminotransfer ALT/SGPT 64 U/L (16-61); Albumin, Serum 3.6 g/dL (3.2-5.0); Alkaline Phosphatase 118 U/L (45-117); Anion Gap 1 (5-15); BUN 13 mg/dL (7-18); BUN/Creat Ratio 10.6 RATIO (10-20); Chloride 97 mmol/L (98-107); Creatinine, Serum 1.23 mg/dL (0.70-1.30); EST Glomerular Filtration Rate 66 mL/min (>60); Est Glom Filt Rate - Afr Amer 79 mL/min (>60); Globulin 4.1 g/dL (2.2-4.2); Glucose 379 mg/dL (74-106); Lipase 482 U/L (73-393); Protein, Total 7.7 g/dL (6.4-8.2); Sodium Level 133 mmol/L (136-145)
[2020-08-19 14:21] LABS: Color, Urine Yellow (Yellow); Glucose, Dipstick 1000 mg/dl (Normal); Ketone-Dipstick Negative (Negative); Leukocyte Esterase-Dipstick Negative /ul (Negative); Nitrite-Dipstick Negative (Negative); Occult Blood-Urine Negative /ul (Negative); Protein-Dipstick 15 mg/dl (Negative); Specific Gravity, Urine 1.015 (1.002-1.030); Urine Bilirubin Dipstick Negative (Negative); Urine Clarity Clear (Clear); Urine Urobilinogen Normal (Normal)
[2020-08-19 15:22] VITALS: BP 178/99; PULSE 76; RESP 20; O2SAT 96
[2020-08-19] MEDS: HYDROmorphone 0.5 MG/0.5 ML SYRINGE IV (16:46)
[2020-08-19 16:47] VITALS: BP 179/95; PULSE 65; RESP 18; O2SAT 99
--- NOTE | 2020-08-19 16:59 | ED.DCSUM_ITS ---
- ER Visit Summary Date of Service: 08/19/20 Chief Complaint: Abdominal pain History of Present Illness: The patient is a 50 M who presents with abdominal pain that began today. Patient states the pain is sharp. Patient states the pain is worse over the epigastric and right upper quadrant areas. Patient states the pain radiates into his back. Patient admits to nausea but denies any vomiting. Patient denies any diarrhea, melena, or hematochezia. Patient denies any dysuria or hematuria. Patient states he has had similar episodes of this in the past but was never diagnosed with anything. Patient states he has not had any episodes of this pain is over the past year. Physical Examination: Vital signs are stable. Patient is afebrile. Patient is in mild distress due to the pain. Oral mucosa is pink and moist. Neck is supple. Trachea is midline. There is no JVD. Heart was regular rate and rhythm. Lungs are clear and equal bilaterally. Abdomen is soft. Bowel sounds are normal. There is diffuse tenderness but worse in the epigastric and right upper quadrant areas. There is no rebound or guarding noted. There is a Carter sign noted. Cranial nerves II through XII are intact. There are no focal motor or sensory deficits. Extremities are intact. There is no calf tenderness or edema. Test Results: CBC shows a mild leukocytosis of 14.3. Hemoglobin was 16.8. Comprehensive metabolic profile was obtained. Glucose was elevated at 379. CO2 was slightly elevated at 35.0. Anion gap was normal. Lipase was slightly elevated at 42. Urinalysis does not show any evidence of urinary tract infection. CT scan of the abdomen pelvis with oral and IV contrast was obtained. There is fatty infiltration of the liver and hepatomegaly. There is a stable right adrenal adenoma. These were interpreted by the radiologist and reviewed by myself. Emergency Department Course and Treatment: Patient was given IV fluids. Patient was given morphine and Zofran initially. Patient required repeat dose of morphine. Patient was feeling somewhat better but stated that his pain started coming back. Patient was given a dose of Dilaudid. Patient was also given a dose of Humalog. I discussed the patient's results with him. Patient was advised that there is no need for admission to the hospital or surgery. Patient was instructed to start with clear liquids and advance as tolerated. Patient was given a prescription for a short course of [place]. Patient was instructed to follow-up with his primary care physician in 3 to 5 days. Patient understood and was agreeable with the plan. All questions were answered. Disposition: Discharge home Impression: 1. Abdominal pain This note was generated with [employer] dictation software. It may contain incorrect words, spelling, and punctuation that were not noted in review of the chart prior to signing ED Disposition - Plan for ED Patient: Disposition: Home or Assisted Living Diagnosis: Upper abdominal pain of unknown etiology Instructions: ED Unknown Causes of Abdominal Pain Male Prescriptions: Hydrocodone Bitart/Apap 5-325 [[place] 5MG-325MG] 1 tab PO Q6H PRN PRN 3 Days #10 tab PRN Reason: Pain Prescription Printed Referrals: Oliverio Isaac MD [NON-STAFF] - 3-5 Days
[2020-08-19] MEDS: Insulin Lispro 100 UNIT/ML INSULN.PEN 10 UNIT SC (17:00)
[2020-08-19] MEDS: 0.9% Normal Saline 1,000 ML 999 ML IV (17:01)
[2020-08-19 18:05] LABS: Bedside Glucose 304 mg/dL (70-110)
[2020-08-19 18:14] VITALS: BP 157/86; PULSE 65; RESP 15; O2SAT 98
== END 2020-08-19 18:15 | disposition home or self-care (01) ==
PROVIDERS: Emergency Provider Emergency Medicine
DX: R10.10 Upper abdominal pain, unspecified (principal); R11.0 Nausea; M54.9 Dorsalgia, unspecified; K76.0 Fatty (change of) liver, not elsewhere classified; D35.02 Benign neoplasm of left adrenal gland; R16.0 Hepatomegaly, not elsewhere classified; E66.9 Obesity, unspecified; Z72.0 Tobacco use; Z87.01 Personal history of pneumonia (recurrent)
CPT/HCPCS: 74177; 80053; 81001; 82962; 83690; 85025; 96361; 96374; 96375; 96376; 99283; J7030; Q9967; A4216; J2405

== ENCOUNTER 2020-11-24 08:13 | Emergency (ER) | payer SELFPAY ==
[2020-11-24 08:13] VITALS: BP 150/86; PULSE 79; RESP 20; TEMP 36.6; O2SAT 100; BMI 33.2
--- NOTE | 2020-11-24 09:05 | US_ITS ---
STUDY: ABDOMINAL ULTRASOUND - RIGHT UPPER QUADRANT REASON FOR VISIT: Male, 50 years old RUQ PAIN THROUGH THE BACK TECHNIQUE: Ultrasound evaluation of the right upper quadrant was performed with real-time and static becerra-scale imaging. TECHNICAL QUALITY: Adequate. COMPARISON: None. FINDINGS: Liver: The liver is enlarged and measures 20.3 cm. There is increased echogenicity consistent with fatty infiltration. The bile ducts are within normal limits. There is hepatic color flow. The direction of portal flow is hepatopetal. There is no demonstrated mass lesion. Gallbladder: Normal distended gallbladder. The gallbladder wall measures 2.1 mm. There is a negative sonographic Carter''s sign. There is no pericholecystic fluid. There are no gallstones. Common Bile Duct (C.B.D.): The common bile duct measures 2.9 mm. Pancreas: Normal size of the head, body and tail of the pancreas. There is normal echogenicity of the pancreas. There is no demonstrated pancreatic mass or cyst. Right Kidney: Normal size of the right kidney. The right kidney measures 11.6 cm x 6 cm x 5 cm. Normal renal cortex. The right cortex measures 1.4 cm. There is a 1.3 cm x 1.3 cm x 1.2 cm renal cyst. There is no right hydronephrosis. US/Gallbladder IMPRESSION: Hepatomegaly and diffuse fatty infiltration of the liver. Right renal cyst. Electronically Signed: Norris Garcia MD at 10:25 EST , Service support ,
[2020-11-24 09:14] LABS: Absolute Lymphocyte Count 4.62 X10^3/uL (0.83-4.51); Absolute Neutrophil Count 5.7 X10^3/uL (2.0-7.7); Basophil# 0.04 X10^3/uL; Basophil% 0.4 % (0-1); Eosinophil# 0.26 X10^3/uL; Eosinophils% 2.3 % (0-5); Hematocrit 47.2 % (40-54); Hemoglobin 15.3 g/dL (13.0-16.5); Lymphocyte # 4.62 X10^3/ul (4.0); Lymphocyte % 40.6 % (19-41); Mean Corp Hgb Conc 32.4 g/dL (32-36); Mean Corpuscular Hgb 28.9 pg (27.0-32.0); Mean Corpuscular Volume 89.1 fL (80-94); Mean Platelet Vol. 10.1 fl (6.2-12.0); Monocyte# 0.73 X10^3/uL; Monocyte% 6.4 % (0-10); NRBC Flagged by Analyzer 0 % (0-5); Platelet Count 267 K/mm3 (150-450); RBC Distribution Width CV 13.4 % (11.6-14.6); White Blood Count 11.4 K/mm3 (4.4-11.0)
[2020-11-24] MEDS: Ondansetron 4 MG/2 ML Vial IV (09:20)
[2020-11-24] MEDS: Ketorolac 30 MG/ML Syringe IV (09:20)
--- NOTE | 2020-11-24 09:21 | ED.DCSUM_ITS ---
- ER Visit Summary Date of Service: 11/24/20 Chief Complaint: Abdominal pain History of Present Illness: The patient is a 50 M who presents with abdominal pain. He said this pain for 2 months. It is intermittent and sharp right upper quadrant. Food makes it worse. Nothing makes it better. He has no nausea, vomiting or diarrhea. He has some urinary urgency and hesitancy but no dysuria or hematuria. He denies having fevers. No history of abdominal surgeries in the past. He was seen here about a month ago and had a negative work-up at that time. Physical Examination: Vital signs reviewed. HEENT exam unremarkable. Heart is regular rate and rhythm without murmurs. Lungs are clear to auscultation. Abdomen is soft with tenderness in the right upper quadrant. There is no guarding or rebound tenderness. Extremities reveal no edema. Skin exam normal. Neurologic exam normal. Test Results: White blood count is 11.4, sodium 35, glucose 323. Lipase is 3893. Right upper quadrant ultrasound shows a fatty liver. Emergency Department Course and Treatment: The patient was given Toradol and Zofran. Upon reevaluation he is feeling much better. His abdomen soft nontender currently. He wants to go home. He does not want to stay in the hospital. At this point since NSAIDs controlled his pain here I will send him home with NSAIDs along with Phenergan for nausea. He will need to follow-up with his primary care physician. Treatment Plan: [] Disposition: Discharge Impression: Pancreatitis This note was generated with [employer] dictation software. It may contain incorrect words, spelling, and punctuation that were not noted in review of the chart prior to signing ED Disposition - Plan for ED Patient: Disposition: Home or Assisted Living Instructions: Acute Pancreatitis Prescriptions: Naproxen [Naprosyn] 500 mg PO BID PRN #20 tab Transmission Status: Pending to [facility] #30 proMETHazine tablet [Phenergan] 25 mg PO Q6H PRN PRN #10 tab PRN Reason: Nausea Transmission Status: Pending to [facility] #30 Referrals: Care Physician,No Primary [Primary Care Provider] - Duane Sharp III, MD [STAFF PHYSICIAN] -
[2020-11-24 09:37] LABS: AST(SGOT) 18 U/L (15-37); Alanine Aminotransfer ALT/SGPT 40 U/L (16-61); Albumin, Serum 3.4 g/dL (3.2-5.0); Alkaline Phosphatase 128 U/L (45-117); Anion Gap 4 (5-15); BUN 17 mg/dL (7-18); BUN/Creat Ratio 15.3 RATIO (10-20); Bilirubin, Direct < 0.05 mg/dL (0.00-0.30); Calcium,Total 9.2 mg/dL (8.5-10.1); Chloride 102 mmol/L (98-107); Creatinine, Serum 1.11 mg/dL (0.70-1.30); EST Glomerular Filtration Rate 74 mL/min (>60); Est Glom Filt Rate - Afr Amer 89 mL/min (>60); Estimated Creatinine Clearance 67.72 ml/min; Globulin 3.7 g/dL (2.2-4.2); Glucose 323 mg/dL (74-106); Lipase 3893 U/L (73-393); Potassium 4.2 mmol/L (3.5-5.1); Protein, Total 7.1 g/dL (6.4-8.2); Sodium Level 135 mmol/L (136-145)
[2020-11-24 10:06] LABS: Bacteria 0 SEEN /hpf (None Seen); Mucous, Urine 0 SEEN /hpf (<or=2+); Red Blood Cells-Urine 0 SEEN /hpf (0-5); Squamous Epithelial Cells - UA 0 SEEN /hpf (0-5); White Blood Cells 0 SEEN /hpf (0-5)
[2020-11-24 10:08] LABS: Glucose, Dipstick 1000 mg/dl (Normal); Ketone-Dipstick Negative (Negative); Leukocyte Esterase-Dipstick Negative /ul (Negative); Nitrite-Dipstick Negative (Negative); Occult Blood-Urine Negative /ul (Negative); Protein-Dipstick 15 mg/dl (Negative); Urine Bilirubin Dipstick Negative (Negative); Urine Urobilinogen Normal (Normal)
[2020-11-24 10:22] LABS: Color, Urine Yellow (Yellow)
[2020-11-24 10:23] LABS: Urine Clarity Clear (Clear)
[2020-11-24 11:02] VITALS: BP 124/77; PULSE 71; RESP 15; O2SAT 99
== END 2020-11-24 11:14 | disposition home or self-care (01) ==
PROVIDERS: Emergency Provider Emergency Medicine
DX: K85.90 Acute pancreatitis without necrosis or infection, unspecified (principal)
CPT/HCPCS: 76705; 80048; 80076; 81001; 83690; 85025; 96374; 96375; 99284; A4216; J2405

== ENCOUNTER 2021-01-24 07:55 | Observation (INO) | payer MEDICAID, SELFPAY ==
[2021-01-24 07:56] VITALS: BP 131/99; PULSE 88; RESP 26; TEMP 36.4; O2SAT 100; BMI 30.6
--- NOTE | 2021-01-24 08:10 | ED.DCSUM_ITS ---
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 Patient has a history of this type of pain and has had several evaluations in the past that did not show any obvious pathology. The patient states the pain began last evening and progressively gotten worse. He had a normal bowel movement yesterday. He denies any urinary symptoms. No nausea and vomiting. Patient had a gallbladder ultrasound in November that showed fatty liver. He had a CT scan last year that was negative. He denies any significant medical problems. Past Medical History - Allergies and Home Meds Allergies/Adverse Reactions: Allergies No Known Allergies Allergy (Verified 01/24/21 08:00) Primary Care Physician: Care Physician,No Primary [Primary Care Provider] - Past Medical History: None Surgical History: noncontributory - Patient cannot recall what surgery he had as a child Smoking Status: Current every day smoker Drugs: None Review of Systems General: Denies: Chills, Fever, Sweats Eyes: Denies: Visual changes - bilaterally, Diplopia ENT: Denies: Rhinorrhea, Sore throat Cardiovascular: Denies: Chest pain, Palpitations Respiratory: Denies: Dyspnea, Cough, Dyspnea on exertion Gastrointestinal: Reports: Abdominal pain. Denies: Nausea, Vomiting, Diarrhea, Melena, Hematochezia Genitourinary: Denies: Dysuria, Hematuria, Frequency Musculoskeletal: Denies: Back pain, Extremity Pain Skin: Denies: Rash, Wounds Neurological: Denies: Headache, Weakness, Numbness Physical Exam Vital Signs/Narrative: Vital Signs Temp Pulse Resp BP Pulse Ox 01/24/21 07:56 97.6 F L 88 26 H 131/99 H 100 Inital Vital Signs reviewed: Yes General: Well nourished, Well developed, No Acute Distress, - - Patient is writhing on the bed unable to get a position of comfort Head: Normocephalic, Atraumatic Eyes: Perrl, EOMI ENT: Moist mucous membranes, No rhinorrhea Neck: Supple, Nontender Cardiovascular: Regular rate, Regular rhythm, No murmurs Respiratory: No distress, CTA bilaterally, Chest nontender Abdomen: Soft, Nondistended, Normal bowel sounds, Tender - Tender palpation diffusely the right side of his abdomen and upper abdomen. Back: Nontender, Normal Inspection Extremities: Nontender, No edema Skin: Normal color, No rash, Diaphoresis Neurological: Alert, Oriented x3, Cranial nerves II-XII grossly intact, Normal Strength, Normal Sensation Psychological: Normal affect, Normal Mood Diagnostic/Tx/Re-eval Clinical Impression(s) from Imaging Studies Abdomen/Pelvis CT 01/24/21 09:44 IMPRESSION: Hepatomegaly and diffuse fatty infiltration of the liver. Stable left adrenal adenoma. Distended urinary bladder. Electronically Signed: Norris Garcia MD at 10:30 EDT , Service support , Laboratory Last Values WBC 10.7 K/mm3 (4.4-11.0) 01/24/21 08:05 RBC 5.35 M/mm3 (4.6-6.2) 01/24/21 08:05 Hgb 15.7 g/dL (13.0-16.5) 01/24/21 08:05 Hct 45.9 % (40-54) 01/24/21 08:05 MCV 85.8 fL (80-94) 01/24/21 08:05 MCH 29.3 pg (27.0-32.0) 01/24/21 08:05 MCHC 34.2 g/dL (32-36) 01/24/21 08:05 RDW Std Deviation 41.0 fl (35.1-43.9) 01/24/21 08:05 RDW Coeff of Maty 13.1 % (11.6-14.6) 01/24/21 08:05 Plt Count 259 K/mm3 (150-450) 01/24/21 08:05 MPV 10.4 fl (6.2-12.0) 01/24/21 08:05 Immature Gran % (Auto) 0.300 % (0.0-0.9) 01/24/21 08:05 Neut % (Auto) 64.1 % (47-70) 01/24/21 08:05 Lymph % (Auto) 26.2 % (19-41) 01/24/21 08:05 [place] % (Auto) 7.8 % (0-10) 01/24/21 08:05 Eos % (Auto) 1.3 % (0-5) 01/24/21 08:05 Baso % (Auto) 0.3 % (0-1) 01/24/21 08:05 Absolute Neuts (auto) 6.9 X10^3/uL (2.0-7.7) 01/24/21 08:05 Absolute Lymphs (auto) 2.80 X10^3/uL (0.83-4.51) 01/24/21 08:05 Nucleated RBC % 0 % (0-5) 01/24/21 08:05 Sodium 129 mmol/L (136-145) L 01/24/21 08:05 Potassium 4.0 mmol/L (3.5-5.1) 01/24/21 08:05 Chloride 93 mmol/L (98-107) L 01/24/21 08:05 Carbon Dioxide 26.0 mmol/L (21.0-32.0) 01/24/21 08:05 Anion Gap 10 (5-15) 01/24/21 08:05 BUN 12 mg/dL (7-18) 01/24/21 08:05 Creatinine 1.34 mg/dL (0.70-1.30) H 01/24/21 08:05 Estim Creat Clear Calc 58.19 ml/min 01/24/21 08:05 Est GFR (MDRD) Af Amer 72 mL/min (>60) 01/24/21 08:05 Est GFR (MDRD) Non-Af 59 mL/min (>60) L 01/24/21 08:05 BUN/Creatinine Ratio 9.0 RATIO (10-20) L 01/24/21 08:05 Glucose 586 mg/dL (74-106) H* 01/24/21 08:05 Calcium 8.6 mg/dL (8.5-10.1) 01/24/21 08:05 Magnesium 2.2 mg/dL (1.6-2.6) 01/24/21 08:05 Total Bilirubin 0.50 mg/dL (0.20-1.00) 01/24/21 08:05 AST 24 U/L (15-37) 01/24/21 08:05 ALT 61 U/L (16-61) 01/24/21 08:05 Alkaline Phosphatase 136 U/L (45-117) H 01/24/21 08:05 Total Protein 7.0 g/dL (6.4-8.2) 01/24/21 08:05 Albumin 3.4 g/dL (3.2-5.0) 01/24/21 08:05 Globulin 3.6 g/dL (2.2-4.2) 01/24/21 08:05 Albumin/Globulin Ratio 0.9 RATIO (0.9-2.4) 01/24/21 08:05 Lipase 931 U/L (73-393) H 01/24/21 08:05 Urine Color Yellow (Yellow) 01/24/21 09:15 Urine Clarity Clear (Clear) 01/24/21 09:15 Urine pH 6.0 (5.0 - 8.0) 01/24/21 09:15 Ur Specific [place] 1.015 (1.002-1.030) 01/24/21 09:15 Urine Protein Negative mg/dl (Negative) 01/24/21 09:15 Urine Glucose (UA) 1000 mg/dl (Normal) H 01/24/21 09:15 Urine Ketones 5 mg/dl (Negative) H 01/24/21 09:15 Urine Occult Blood Negative /ul (Negative) 01/24/21 09:15 Urine Nitrite Negative (Negative) 01/24/21 09:15 Urine Bilirubin Negative mg/dL (Negative) 01/24/21 09:15 Urine Urobilinogen Normal mg/dl (Normal) 01/24/21 09:15 Ur Leukocyte Esterase Negative /ul (Negative) 01/24/21 09:15 Urine RBC 0 SEEN /hpf (0-5) 01/24/21 09:15 Urine WBC 0 SEEN /hpf (0-5) 01/24/21 09:15 Ur Squamous Epith Cells 0 SEEN /hpf (0-5) 01/24/21 09:15 Urine Bacteria 0 SEEN /hpf (None Seen) 01/24/21 09:15 Urine Mucus 0 SEEN /hpf (<or=2+) 01/24/21 09:15 Acetone Level NEGATIVE (NEG) 01/24/21 08:05 POC Glucose 349 mg/dL (70-110) H 01/24/21 10:34 - Medical Decision Making Received Toradol and Zofran and later morphine. He received IV fluids. His blood sugar came back greater than 586 Hemoglobin A1c was added on. We then administered 15 units of insulin his blood sugars down to 349. CT the abdomen pelvis does not demonstrate anything acute. His lipase is 931. November his lipase was 3800. Question if this is recurrent pancreatitis? creatinine 1.34 he continues to have significant abdominal pain. Patient was advised my recommendation is that he should be admitted he is agreeable to this plan I will speak with the hospitalist ED Disposition - Plan for ED Patient: Disposition: Acute Care Hospital [facility] Diagnosis: Acute abdominal pain, Diabetes mellitus, new onset, Elevated lipase Referrals: Care Physician,No Primary [Primary Care Provider] -
[2021-01-24 08:13] LABS: Absolute Neutrophil Count 6.9 X10^3/uL (2.0-7.7); Basophil# 0.03 X10^3/uL; Basophil% 0.3 % (0-1); Eosinophil# 0.14 X10^3/uL; Eosinophils% 1.3 % (0-5); Hematocrit 45.9 % (40-54); Hemoglobin 15.7 g/dL (13.0-16.5); Lymphocyte % 26.2 % (19-41); Mean Corp Hgb Conc 34.2 g/dL (32-36); Mean Corpuscular Hgb 29.3 pg (27.0-32.0); Mean Corpuscular Volume 85.8 fL (80-94); Mean Platelet Vol. 10.4 fl (6.2-12.0); Monocyte# 0.83 X10^3/uL; Monocyte% 7.8 % (0-10); NRBC Flagged by Analyzer 0 % (0-5); Neutrophil # 6.87 X10^3/uL (2.7-7.7); Neutrophil % 64.1 % (47-70); Platelet Count 259 K/mm3 (150-450); RBC Distribution Width CV 13.1 % (11.6-14.6); Red Blood Count 5.35 M/mm3 (4.6-6.2); White Blood Count 10.7 K/mm3 (4.4-11.0)
[2021-01-24] MEDS: 0.9% Normal Saline 1,000 ML 1000 ML IV (08:20)
[2021-01-24] MEDS: Ondansetron 4 MG/2 ML Vial IV (08:20)
[2021-01-24] MEDS: Ketorolac 30 MG/ML Syringe IV (08:20)
[2021-01-24 08:41] LABS: ALB/GLOB Ratio 0.9 RATIO (0.9-2.4); AST(SGOT) 24 U/L (15-37); Albumin, Serum 3.4 g/dL (3.2-5.0); Alkaline Phosphatase 136 U/L (45-117); Anion Gap 10 (5-15); BUN 12 mg/dL (7-18); Calcium,Total 8.6 mg/dL (8.5-10.1); Chloride 93 mmol/L (98-107); Creatinine, Serum 1.34 mg/dL (0.70-1.30); EST Glomerular Filtration Rate 59 mL/min (>60); Est Glom Filt Rate - Afr Amer 72 mL/min (>60); Estimated Creatinine Clearance 58.19 ml/min; Globulin 3.6 g/dL (2.2-4.2); Glucose 586 mg/dL (74-106); Lipase 931 U/L (73-393); Sodium Level 129 mmol/L (136-145)
[2021-01-24 08:53] LABS: Alanine Aminotransfer ALT/SGPT 61 U/L (16-61)
[2021-01-24] MEDS: Insulin Lispro 100 UNIT/ML INSULN.PEN 15 UNIT SC (09:18)
[2021-01-24 09:20] LABS: Magnesium 2.2 mg/dL (1.6-2.6)
[2021-01-24 09:26] LABS: Bacteria 0 SEEN /hpf (None Seen); Mucous, Urine 0 SEEN /hpf (<or=2+); Red Blood Cells-Urine 0 SEEN /hpf (0-5); Squamous Epithelial Cells - UA 0 SEEN /hpf (0-5); White Blood Cells 0 SEEN /hpf (0-5)
[2021-01-24 09:27] LABS: Color, Urine Yellow (Yellow); Glucose, Dipstick 1000 mg/dl (Normal); Ketone-Dipstick 5 mg/dl (Negative); Leukocyte Esterase-Dipstick Negative /ul (Negative); Nitrite-Dipstick Negative (Negative); Occult Blood-Urine Negative /ul (Negative); Protein-Dipstick Negative (Negative); Specific Gravity, Urine 1.015 (1.002-1.030); Urine Bilirubin Dipstick Negative (Negative); Urine Clarity Clear (Clear); Urine Urobilinogen Normal (Normal)
--- NOTE | 2021-01-24 09:44 | CT_ITS ---
STUDY: CT ABDOMEN AND PELVIS WITH CONTRAST REASON FOR EXAM: Male, 50 years old. Abdominal pain. Right upper quadrant pain. RADIATION DOSAGE (If Supplied By Facility): CTDIvol = ( 17.57 ) mGy, DLP = ( 1921.62 ) mGycm TECHNIQUE: Transaxial images were obtained from the dome of the diaphragm to the symphysis pubis without oral contrast. IV 100mL Isovue-370 was administered. Sagittal and coronal images were reconstructed. Individualized dose optimization techniques were used for this CT. COMPARISON: Comparison is made with prior study dated 08/19/2020. FINDINGS: The visualized lung bases are unremarkable. The visualized portions of the heart are within normal limits. There is decreased attenuation of the liver consistent with steatosis. Mild hepatomegaly. Normal gallbladder and extrahepatic biliary system. Normal spleen. Normal pancreas. There is a small, circumscribed, smooth, low attenuation left adrenal mass, consistent with an adrenal adenoma. This measures 2.5 cm. This is unchanged. Normal right adrenal gland. 1.4 cm cyst in the anterior midportion of the right kidney. Normal left kidney. Normal visualized stomach. Normal small intestine. Normal colon. The appendix is visualized and appears normal. There is diffuse atherosclerotic calcification of the abdominal aorta, without a demonstrated aneurysm. Normal inferior vena cava. There is borderline retroperitoneal lymphadenopathy with enlarged nodes no greater than 10mm in the short axis diameter. Distended urinary bladder. The prostate measures 4 cm x 3.6 cm. Small bilateral inguinal hernias containing fat. Normal osseous structures. CT/Abdomen/Pelvis W IV Cont ONLY IMPRESSION: Hepatomegaly and diffuse fatty infiltration of the liver. Stable left adrenal adenoma. Distended urinary bladder. Electronically Signed: Norris Garcia MD at 10:30 EDT , Service support ,
[2021-01-24 10:36] VITALS: BP 143/101; PULSE 88; RESP 19; O2SAT 99
[2021-01-24 10:41] LABS: Bedside Glucose 349 mg/dL (70-110)
[2021-01-24] MEDS: Morphine 4 MG/ML Syringe IV ×2 (10:54→13:45)
[2021-01-24] MEDS: 0.9% Normal Saline 1,000 ML 200 ML IV ×3 (10:55→20:55)
[2021-01-24 11:16] LABS: Hemoglobin A1c 13.6 % (3.8-5.6)
--- NOTE | 2021-01-24 12:22 | HP.PCM_ITS ---
Problem List (1) Acute abdominal pain Status: Acute (2) Diabetes mellitus, new onset Status: Acute (3) Elevated lipase Status: Acute History of Present Illness Date of Admission: 01/24/21 Chief Complaint: abdominal pain The patient is a 50 year old M presents with 1 day of abdominal pain. Abdominal pain in epigastrium. Similar to abdominal pain back in November when his lipase was over 3000. CT was significant for hepatomegaly. Patient was found to be uncontrolled DM and did receive insulin. Patient denies alcohol consumption for 2 years. [] Past Medical History Medical History: Medical History (Last Updated 01/24/21 @ 12:[address] Lenny Canada, DO) DM2 (diabetes mellitus, type 2) E11.9 Allergies No Known Allergies Allergy (Verified 01/24/21 08:00) Home Medications: Ambulatory Orders Medication Instructions Recorded NK 01/24/21 Surgical History: noncontributory - Patient cannot recall what surgery he had as a child Smoking Status: Current every day smoker Tobacco Use: Cigarettes Alcohol: None Drugs: None - *Family History Maternal History Items: - - no diabetes Review of Systems Constitutional: Denies: Anorexia, Chills, Fever, Night Sweats Eyes: Denies: Blurred vision, Double vision HEENT: Denies: Head Aches, Sinus Congestion, Sinus Drainage Cardiovascular: Denies: Chest Pain, Palpitations Respiratory: Denies: Cough, Shortness of breath at rest, Sputum production Gastrointestinal: Reports: Abdominal Pain Genitourinary: Denies: Dysuria Musculoskeletal: Denies: Joint Pain, Joint Tenderness Hematologic/ Lymphatic: Denies: Easy Bruising, Easy Bleeding, Hx of blood clot Comment: All review of systems were negative except as mentioned above in the history of present illness and the other review of systems. VTE Information - Inpt Only VTE Present on Admission: No VTE Mechan Device Prophylaxis: None VTE Pharm Prophylaxis ordered?: Yes Patient Problems: Active and Suspected Problems Acute abdominal pain (Acute) Diabetes mellitus, new onset (Acute) Elevated lipase (Acute) - Physical Exam Vitals/I&O's: Vital Signs Temp Pulse Resp BP Pulse Ox 36.4 C L 88 19 H 143/101 H 99 01/24/21 07:56 01/24/21 10:36 01/24/21 10:36 01/24/21 10:36 01/24/21 10:36 Oxygen Delivery Method Room Air Weight: 86 kg Body Mass Index (BMI) 30.6 Intake and Output for Last 24 Hours 01/22/21 01/23/21 01/24/21 23:59 23:59 23:59 Intake Total 1000 / 1000 Balance 1000 / 1000 General: Alert, Cooperative, No apparent distress HEENT: Atraumatic, Normocephalic Oral: Moist Mucosa, No Gingival or Mucosal Lesions/ Ulcerations Neck: No Nodes, Thyroid Normal Size and Texture Lungs: Clear to auscultation, Normal air movement Cardiovascular: Regular rate, Regular Rhythm, Normal S1, Normal S2, No murmurs Abdomen: Bowel Sounds Present, Soft, Non-Distended, - - slight epigastric tenderness Extremities: No edema, No Calf Tenderness Skin: No rashes, No breakdown Musculoskeletal: No Tenderness to Palpation of Joints or Extremities, No Muscle Wasting Neurological: Muscle tone normal, Sensory exam intact to light touch and pain Psych/Mental Status: Normal Affect, Appropriate Laboratory Results 01/24/21 08:05: WBC 10.7, RBC 5.35, Hgb 15.7, Hct 45.9, MCV 85.8, MCH 29.3, MCHC 34.2, RDW Std Deviation 41.0, RDW Coeff of Maty 13.1, Plt Count 259, MPV 10.4, Immature Gran % (Auto) 0.300, Neut % (Auto) 64.1, Lymph % (Auto) 26.2, [place] % (Auto) 7.8, Eos % (Auto) 1.3, Baso % (Auto) 0.3, Absolute Neuts (auto) 6.9, Absolute Lymphs (auto) 2.80, Nucleated RBC % 0 01/24/21 08:05: Sodium 129 L, Potassium 4.0, Chloride 93 L, Carbon Dioxide 26.0, Anion Gap 10, BUN 12, Creatinine 1.34 H, Estim Creat Clear Calc 58.19, Est GFR (MDRD) Af Amer 72, Est GFR (MDRD) Non-Af 59 L, BUN/Creatinine Ratio 9.0 L, Glucose 586 H*, Calcium 8.6, Total Bilirubin 0.50, AST 24, ALT 61, Alkaline Phosphatase 136 H, Total Protein 7.0, Albumin 3.4, Globulin 3.6, Albumin/Globulin Ratio 0.9, Lipase 931 H 01/24/21 08:05: Magnesium 2.2 01/24/21 08:05: Acetone Level NEGATIVE 01/24/21 08:05: Hemoglobin A1c 13.6 H 01/24/21 09:15: Urine Color Yellow, Urine Clarity Clear, Urine pH 6.0, Ur Specific [place] 1.015, Urine Protein Negative, Urine Glucose (UA) 1000 H, Urine Ketones 5 H, Urine Occult Blood Negative, Urine Nitrite Negative, Urine Bilirubin Negative, Urine Urobilinogen Normal, Ur Leukocyte Esterase Negative, Urine RBC 0 SEEN, Urine WBC 0 SEEN, Ur Squamous Epith Cells 0 SEEN, Urine Bacteria 0 SEEN, Urine Mucus 0 SEEN 01/24/21 10:34: POC Glucose 349 H Current Medications Sodium Chloride () 1,000 mls @ 200 mls/hr IV .Q5H DARIN Last Admin: 01/24/21 10:55 Dose: 200 mls/hr Documented by: Assessment/Plan All Active Problems Acute abdominal pain (Acute) Diabetes mellitus, new onset (Acute) Elevated lipase (Acute) 1. acute pancreatitis US from November negative. CT unremarkable except hepatomegaly. Plan: * clear diet * IVF * pain control * may need to have general surgery involved in v outpt. 2. DM2 uncontrolled not new onset no DKA a1c 13.2 plan * basal insulin, prandial insulin and SSI * dietary consult 3. Hepatomegaly needs follow up GI maybe related to alcohol in the past 4. hyponatremia may be pseudohyponatremia monitor 5. VTE prophylaxis: LMWH Inpatient E&M: 57468 Init Hosp L3
[2021-01-24 12:33] VITALS: BP 161/94; PULSE 70; RESP 16; RESP 18; TEMP 37; O2SAT 97
[2021-01-24 12:36] LABS: Bedside Glucose 240 mg/dL (70-110)
[2021-01-24 12:47] VITALS: BMI 31.8
[2021-01-24 12:58] VITALS: BP 129/90; PULSE 73; RESP 16; TEMP 36.5; O2SAT 99
[2021-01-24 13:16] LABS: Bedside Glucose 219 mg/dL (70-110)
[2021-01-24 13:24] LABS: ALB/GLOB Ratio 0.8 RATIO (0.9-2.4); AST(SGOT) 20 U/L (15-37); Alanine Aminotransfer ALT/SGPT 61 U/L (16-61); Albumin, Serum 2.9 g/dL (3.2-5.0); Alkaline Phosphatase 108 U/L (45-117); Anion Gap 6 (5-15); BUN 11 mg/dL (7-18); BUN/Creat Ratio 11.4 RATIO (10-20); Calcium,Total 8.2 mg/dL (8.5-10.1); Chloride 101 mmol/L (98-107); Creatinine, Serum 0.96 mg/dL (0.70-1.30); EST Glomerular Filtration Rate 87 mL/min (>60); Est Glom Filt Rate - Afr Amer 105 mL/min (>60); Globulin 3.6 g/dL (2.2-4.2); Glucose 223 mg/dL (74-106); Potassium 3.8 mmol/L (3.5-5.1); Protein, Total 6.5 g/dL (6.4-8.2); Sodium Level 136 mmol/L (136-145)
[2021-01-24] MEDS: Insulin NPH Human 100 UNITS/ML PEN 10 UNITS SC (13:46)
[2021-01-24] MEDS: Insulin Lispro 100 UNIT/ML INSULN.PEN SC ×2 (16:04)
[2021-01-24 16:10] LABS: Bedside Glucose 187 mg/dL (70-110)
[2021-01-24 17:49] VITALS: BP 132/96; PULSE 73; RESP 16; TEMP 36.4; O2SAT 96
[2021-01-24 19:34] VITALS: BP 149/96; PULSE 70; RESP 16; TEMP 36.8; O2SAT 97
[2021-01-24 21:06] LABS: Bedside Glucose 220 mg/dL (70-110)
[2021-01-25] MEDS: Ondansetron 4 MG/2 ML Vial IV (00:41)
[2021-01-25] MEDS: 0.9% Saline Lock 10 ML Syringe IV (00:41)
[2021-01-25] MEDS: 0.9% Normal Saline 1,000 ML 200 ML IV ×4 (00:41→18:54)
[2021-01-25] MEDS: Morphine 4 MG/ML Syringe IV (00:41)
[2021-01-25 00:42] VITALS: BP 146/94; PULSE 66; RESP 18; TEMP 36.6; O2SAT 98
[2021-01-25 07:54] LABS: Lipase 707 U/L (73-393)
[2021-01-25 08:00] VITALS: BP 137/85; PULSE 63; RESP 18; TEMP 36.7; O2SAT 96
[2021-01-25 08:25] LABS: Bedside Glucose 136 mg/dL (70-110)
--- NOTE | 2021-01-25 08:46 | US_ITS ---
STUDY: ABDOMINAL ULTRASOUND - RIGHT UPPER QUADRANT REASON FOR VISIT: Male, 50 years old pancreatitis TECHNIQUE: Ultrasound evaluation of the right upper quadrant was performed with real-time and static becerra-scale imaging. TECHNICAL QUALITY: Adequate. COMPARISON: Comparison is made with prior examination dated 11/24/2020. FINDINGS: Liver: The liver is enlarged and measures 20 cm. There is increased echogenicity consistent with fatty infiltration. The bile ducts are within normal limits. There is hepatic color flow. The direction of portal flow is hepatopetal. There is no demonstrated mass lesion. Gallbladder: Normal distended gallbladder. The gallbladder wall measures 2.4 mm. There is a negative sonographic Carter''s sign. There is no pericholecystic fluid. There are no gallstones. Common Bile Duct (C.B.D.): The common bile duct measures 3.6 mm. Pancreas: There is nonvisualization of the pancreas due to overlying bowel gas. Right Kidney: Normal size of the right kidney. The right kidney measures 12.9 cm x 4.1 cm x 6.5 cm. Normal renal cortex. The right cortex measures 2.0 cm. There is a 1.4 cm x 1.3 cm x 0.9 cm cyst. There is no right hydronephrosis. US/Abdomen Limited IMPRESSION: Hepatomegaly and fatty infiltration of the liver. 1.4 cm x 1.3 cm x 0.9 cm right renal cyst. Electronically Signed: Norris Garcia MD at 13:21 EDT , Service support ,
[2021-01-25] MEDS: Insulin Lispro 100 UNIT/ML INSULN.PEN SC ×4 (09:53→16:41)
[2021-01-25] MEDS: Enoxaparin 40 MG/0.4 ML Syringe SC (09:54)
--- NOTE | 2021-01-25 11:52 | PCM.PN.HOSP ---
Subjective Subjective: feeling better. still with epigastric pain, but improved. Objective Data Objective Data Vital Signs: Vital Signs Temp Pulse Resp BP Pulse Ox 36.6 C 66 18 146/94 H 98 01/25/21 00:42 01/25/21 00:42 01/25/21 00:42 01/25/21 00:42 01/25/21 00:42 Oxygen Delivery Method Room Air Weight: 86.907 kg Body Mass Index (BMI) 31.8 Finger Stick Blood Glucose 240 Intake & Output: Intake and Output for Last 24 Hours 01/23/21 01/24/21 01/25/21 23:59 23:59 23:59 Intake Total 3623.33 / 3623.33 1753.33 / 1753.33 Balance 3623.33 / 3623.33 1753.33 / 1753.33 Lab / Micro Data Result Diagrams: 01/24/21 08:05 01/24/21 12:50 Labs: Laboratory Results - last 24 hr 01/24/21 01/24/21 01/24/21 12:28 12:50 13:09 Sodium 136 Potassium 3.8 Chloride 101 Carbon Dioxide 29.0 Anion Gap 6 BUN 11 Creatinine 0.96 Estim Creat Clear Calc 78.30 Est GFR (MDRD) Af Amer 105 Est GFR (MDRD) Non-Af 87 BUN/Creatinine Ratio 11.4 Glucose 223 H Calcium 8.2 L Total Bilirubin 0.50 AST 20 ALT 61 Alkaline Phosphatase 108 Total Protein 6.5 Albumin 2.9 L Globulin 3.6 Albumin/Globulin Ratio 0.8 L Lipase POC Glucose 240 H 219 H 01/24/21 01/24/21 01/25/21 16:00 20:57 06:50 Sodium Potassium Chloride Carbon Dioxide Anion Gap BUN Creatinine Estim Creat Clear Calc Est GFR (MDRD) Af Amer Est GFR (MDRD) Non-Af BUN/Creatinine Ratio Glucose Calcium Total Bilirubin AST ALT Alkaline Phosphatase Total Protein Albumin Globulin Albumin/Globulin Ratio Lipase 707 H POC Glucose 187 H 220 H 01/25/21 08:19 Sodium Potassium Chloride Carbon Dioxide Anion Gap BUN Creatinine Estim Creat Clear Calc Est GFR (MDRD) Af Amer Est GFR (MDRD) Non-Af BUN/Creatinine Ratio Glucose Calcium Total Bilirubin AST ALT Alkaline Phosphatase Total Protein Albumin Globulin Albumin/Globulin Ratio Lipase POC Glucose 136 H Physical Exam Const alert Resp normal respiratory effort and clear to auscultation bilaterally Cardio regular rate, regular rhythm, S1 normal heart sound and S2 normal heart sound GI normal to inspection, nondistended, normoactive bowel sounds, non-tender and non-distended Assessment & Plan Assessment/Plan (1) Pancreatitis: Status: Acute Code(s): K85.90 - Acute pancreatitis without necrosis or infection, unspecified Qualifiers: Chronicity: acute Pancreatitis type: unspecified pancreatitis type Plan: improving. unclear etiology. CT negative. Lipase trending down. check US (2) Diabetes mellitus, new onset: Status: Acute Code(s): E11.9 - Type 2 diabetes mellitus without complications Plan: Improved A1c 13.2 continue prandial 5, Glargine 25 QHS. monitor.
[2021-01-25 12:50] LABS: Bedside Glucose 101 mg/dL (70-110)
--- NOTE | 2021-01-25 13:29 | CASEMGMT ---
Social Work Note Pt is listed as self-pay. SW reviewed PFS notes. Pt had told PFS that he does have Medicaid and he got a letter confirming he had it. PFS encouraged pt to contact Medicaid. SW in to speak with pt. SW introduced self and role at [facility]. Pt confirms he has no insurance states I thought I had it. SW provided pt with Medicaid application and number and encouraged pt to call to inquire about Medicaid. SW also provided pt with additional financial resources including HCAP application, [place] [id number], RX assistnace programs, and [facility] information. Pt denied additional needs or concerns at this time. Brooklynn Cardenas [employer] CREW [employer]ORER, [employer]
[2021-01-25 14:00] VITALS: BP 133/87; PULSE 89; RESP 18; TEMP 37.1; O2SAT 97
[2021-01-25 16:46] LABS: Bedside Glucose 175 mg/dL (70-110)
--- NOTE | 2021-01-25 20:05 | NURSING ---
Pt states he wants to leave. Talked to him about his pancreatitis and treatment and also the impact of being a new diabetic. Lynda TARANGO talked to pt as well. Martin MARVIN advised. Lynda TARANGO will advise Dr. Osborn as well.
--- NOTE | 2021-01-25 20:14 | NURSING ---
Pt was encouraged to follow up with a PCP for management of his diabetes and pancreatitis. States he does not have a PCP at this time. He seems intent on leaving because he wants to smoke and be outside. Asked him if he would like a nicotine patch but states he just wants to leave. 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 AMA sheet signed.
--- NOTE | 2021-01-25 20:15 | NURSING ---
Pt wanted to leave AMA since start of shift when this RN was rounding. Day shift RN tried to talk to pt and explained that he might want to stay one more night since his labs are still not good. pt still on clear liquid diet. told pt to think about it but its best if he stayed since he's also new diagnosed DM. pt still decide to leave at this time. discharge rn spoke to hospitalist and pt singed AMA papers. removed pts IV, pt has his belongings. assistant chief engineer walked pt to the entrance.
--- NOTE | 2021-01-25 20:18 | PCM.HOSP.N ---
Hospitalist Note Received report from Jackelin MARVIN that patient was wanting to leave AMA. Discussed patient's ongoing health concerns and medical management needs with patient who verbalized understanding but was still adamant that he wanted to leave AGAINST MEDICAL ADVICE. Informed Jackelin MARVIN of patient's wishes and patient was provided with AMA paperwork to sign.
== END 2021-01-25 20:25 | disposition left against medical advice (07) ==
LOC: ED 11:10 → MS3 13:04
PROVIDERS: Emergency Provider Emergency Medicine
DX: K85.90 Acute pancreatitis without necrosis or infection, unspecified (principal); E11.9 Type 2 diabetes mellitus without complications; F17.210 Nicotine dependence, cigarettes, uncomplicated; R16.0 Hepatomegaly, not elsewhere classified; E87.1 Hypo-osmolality and hyponatremia
CPT/HCPCS: 36415; 74177; 76705; 80053; 81001; 82009; 82962; 83036; 83690; 83735; 85025; 96361; 96372; 96374; 96375; 96376; 97802; 97803; 99218; 99285; 99406; J7030; Q9967; A4216; G0378; J2405

== ENCOUNTER → 2021-01-31 10:05 | Outpatient (CLI) | payer MEDICAID, SELFPAY ==
[2021-01-31 08:49] VITALS: BMI 31.4
[2021-01-31 12:18] LABS: Absolute Lymphocyte Count 2.43 X10^3/uL (0.83-4.51); Absolute Neutrophil Count 6.7 X10^3/uL (2.0-7.7); Basophil# 0.04 X10^3/uL; Basophil% 0.4 % (0-1); Eosinophil# 0.29 X10^3/uL; Eosinophils% 2.8 % (0-5); Hematocrit 46.3 % (40-54); Hemoglobin 15.2 g/dL (13.0-16.5); Lymphocyte # 2.43 X10^3/ul (0.83-4.51); Lymphocyte % 23.3 % (19-41); Mean Corp Hgb Conc 32.8 g/dL (32-36); Mean Corpuscular Hgb 29.5 pg (27.0-32.0); Mean Corpuscular Volume 89.9 fL (80-94); Mean Platelet Vol. 10.7 fl (6.2-12.0); Monocyte# 0.93 X10^3/uL; Monocyte% 8.9 % (0-10); NRBC Flagged by Analyzer 0 % (0-5); Neutrophil % 64.1 % (47-70); Platelet Count 288 K/mm3 (150-450); RBC Distribution Width CV 12.9 % (11.6-14.6); RBC Distribution Width SD 42.7 fl (35.1-43.9); Red Blood Count 5.15 M/mm3 (4.6-6.2); White Blood Count 10.4 K/mm3 (4.4-11.0)
[2021-01-31 12:36] LABS: ALB/GLOB Ratio 0.7 RATIO (0.9-2.4); AST(SGOT) 20 U/L (15-37); Alanine Aminotransfer ALT/SGPT 44 U/L (16-61); Albumin, Serum 3.1 g/dL (3.2-5.0); Alkaline Phosphatase 99 U/L (45-117); Anion Gap 10 (5-15); BUN 14 mg/dL (7-18); BUN/Creat Ratio 16.1 RATIO (10-20); Calcium,Total 8.9 mg/dL (8.5-10.1); Chloride 101 mmol/L (98-107); Cholesterol 251 mg/dL (200); Creatinine, Serum 0.87 mg/dL (0.70-1.30); EST Glomerular Filtration Rate 98 mL/min (>60); Est Glom Filt Rate - Afr Amer 118 mL/min (>60); Free T3 2.5 pg/mL (2.18-3.98); Globulin 4.2 g/dL (2.2-4.2); Glucose 183 mg/dL (74-106); High Density Lipoprotein 34 mg/dL; Potassium 3.9 mmol/L (3.5-5.1); Protein, Total 7.3 g/dL (6.4-8.2); Sodium Level 137 mmol/L (136-145); T4 Free Direct 1.11 ng/dL (0.76-1.46); Thyroid Stim Hormone (TSH) 0.51 uIU/mL (0.358-3.74); Triglycerides 211 mg/dL; Very Low Density Lipoprotein 42 mg/dL (5-40)
[2021-01-31 13:02] LABS: Vitamin D,25 Hydroxy 16.2 ng/mL
[2021-01-31 13:27] LABS: Lipase 716 U/L (73-393)
== END ==
PROVIDERS: Visit Provider Internal Medicine
DX: E11.9 Type 2 diabetes mellitus without complications (principal); K85.90 Acute pancreatitis without necrosis or infection, unspecified; R10.9 Unspecified abdominal pain; R74.8 Abnormal levels of other serum enzymes
CPT/HCPCS: 36415; 80053; 80061; 82306; 83690; 84153; 84439; 84443; 84481; 85025; G0103

== ENCOUNTER → 2021-02-08 12:34 | Outpatient (CLI) | payer MEDICAID, SELFPAY ==
[2021-01-31 08:49] VITALS: BMI 31.4
--- NOTE | 2021-02-08 12:36 | NM_ITS ---
CLINICAL: 50-year-old male with reported history of right upper quadrant abdominal pain. RADIONUCLIDE HEPATOBILIARY SCINTIGRAPHY COMPARISON: Abdominal ultrasound report 01/25/2021, CT of the abdomen-pelvis report 01/24/2021 FINDINGS: Following the intravenous administration of 5.2 mCi of 99m Tc Mebrofenin, hepatobiliary images reveal: 1. Relatively prompt and homogeneous radiopharmaceutical concentration is noted by a normal sized liver. No parenchymal defects are identified. 2. Gallbladder activity is identified at 15 minutes post radiopharmaceutical administration. 3. Small intestinal tract is observed at 45 minutes following tracer injection. 4. Washout of the radiopharmaceutical by the hepatic parenchyma appears qualitatively normal. The patient was administered a fatty meal (8 ounces Half and Half). The post fatty meal consumption gallbladder ejection fraction calculated at 44 minutes was noted to be 42.0 % (normal greater than 30%). NM/Hepatobilliary Img w/Pharm Int IMPRESSION: 1. NORMAL 99m Tc Mebrofenin hepatobiliary imaging examination with fatty meal ingestion. A. A gallbladder ejection fraction calculated to be greater than 30% following the administration of a consumed fatty meal makes the probability of functional hepatobiliary disease (gallbladder and/or sphincter of Oddi dyskinesia) and/or organic hepatobiliary disease (chronic acalculous cholecystitis and/or cystic duct syndrome) to be low. (Elenita and Reynaldo, J Nucl Med 43: 1603, 2002). Electronically Signed: Dallas Moulton DO at 17:18 EDT Tel , Service support ,
== END ==
PROVIDERS: PCP Internal Medicine; Referring Provider Internal Medicine; Visit Provider Internal Medicine
DX: K85.90 Acute pancreatitis without necrosis or infection, unspecified (principal); E11.9 Type 2 diabetes mellitus without complications; R10.9 Unspecified abdominal pain; R74.8 Abnormal levels of other serum enzymes
CPT/HCPCS: 78227; A9537

== ENCOUNTER → 2021-02-22 12:04 | Outpatient (CLI) | payer MEDICAID, SELFPAY ==
[2021-01-31 08:49] VITALS: BMI 31.4
--- NOTE | 2021-02-22 12:05 | MRI_ITS ---
STUDY: MR MRCP WITHOUT CONTRAST REASON FOR EXAM: Male, 50 years old. Recurrent pancreatitis -- Recurrent pancreatitis TECHNIQUE: Standard MRCP technique was utilized. COMPARISON: CT dated 01/24/21 FINDINGS: This study is limited by patient motion and lack of contrast. There are no gallstones. There is no intrahepatic biliary duct dilatation. The common bile duct is normal in caliber, measuring 5 mm. There are no filling defects in the common bile duct to suggest choledocholithiasis. The pancreatic duct is normal in caliber. There is ill-defined soft tissue in the uncinate process of the pancreas which measures approximately 1.2 x 1.1 cm. This is not well evaluated on this noncontrast exam and was better visualized on the CT dated 01/24/21 (image 47 [address] dated 01/24/21). This is suspicious for neoplasm and a pancreatic protocol CT or MRI is recommended. MRI/MRCP Abdomen without Contrast IMPRESSION: No gallstones. No biliary duct dilatation. No choledocholithiasis. Ill-defined soft tissue in the uncinate process of the pancreas which measures approximately 1.2 x 1.1 cm. This is not well evaluated on this noncontrast exam and was better visualized on the CT dated 01/24/21. This is suspicious for neoplasm and a pancreatic protocol CT or MRI is recommended. Electronically Signed: Romeo Villalobos MD at 8:59 EDT Tel , Service support ,
== END ==
PROVIDERS: PCP Internal Medicine; Referring Provider Internal Medicine; Visit Provider Internal Medicine
DX: K85.90 Acute pancreatitis without necrosis or infection, unspecified (principal)
CPT/HCPCS: 74181

== ENCOUNTER → 2021-03-04 16:54 | Outpatient (CLI) | payer MEDICAID, SELFPAY ==
[2021-01-31 08:49] VITALS: BMI 31.4
[2021-03-04 17:10] LABS: CREATININE FINGERSTICK 1.3 mg/dL (0.70-1.30); EGFR FINGERSTICK > 60.0000 mL/min (>60)
--- NOTE | 2021-03-04 17:12 | CT_ITS ---
STUDY: CT ABDOMEN WITH AND WITHOUT CONTRAST REASON FOR EXAM: Male, 51 years old. Possible pancreatic mass -- CT pancreatic protocol. See MRI done 02/23/21 RADIATION DOSAGE (If Supplied By Facility): CTDIvol = ( 17.28 ) mGy, DLP = ( 1065.94 ) mGycm TECHNIQUE: Transaxial images were obtained pre and post I.V. administration of Oral and amp; IV Readi-CAT and amp; 100mL Isovue-300, and oral contrast. Sagittal and coronal images were reconstructed. Individualized dose optimization techniques were used for this CT. COMPARISON: 22 Feb 2021, 24 January 2021, 19 August 2020, 22 July 2019, 08 July 2015. FINDINGS: Examination is technically suboptimal to answer clinical question posed. Pancreatic protocol CT was not performed. Instead a noncontrast and corticomedullary phase postcontrast imaging was performed. However, diagnostic information is available from the study when combined with prior recent CT and MR. Current report will summarize findings from prior studies. Acute pancreatitis of the head and uncinate process present on 24 January 2021 has resolved. Hypodense 1 cm lesion in the uncinate is visualized with difficulty on the current scan and is better seen in December. This potentially represents focal pancreatitis versus adenocarcinoma. Visualized portions of the liver, spleen are normal. Kidneys are normal with a benign right renal cyst. Left adrenal contains an elongated 3 cm benign adenoma stable since 6 years prior. There is no upper abdominal lymphadenopathy. There is no gastric outlet obstruction. There is early aortic atherosclerosis. CT/Abdomen W/WO IV Contrast IMPRESSION: 1. 1 cm hypodense uncinate lesion in the setting of resolving/resolved pancreatitis. Differential diagnosis is focal pancreatitis versus neoplasm. Further diagnosis can be performed with endoscopic ultrasound versus follow-up imaging in 4 months with MR or CT dedicated pancreatic protocol if pancreatic cancer related laboratory markers are normal. Electronically Signed: Remy Pulido MD at 18:00 EDT Tel , Service support ,
== END ==
PROVIDERS: PCP Internal Medicine; Referring Provider Internal Medicine; Visit Provider Internal Medicine
DX: K85.90 Acute pancreatitis without necrosis or infection, unspecified (principal)
CPT/HCPCS: 74170; Q9967

== ENCOUNTER → 2021-03-18 13:16 | Outpatient (CLI) | payer MEDICAID, SELFPAY ==
[2021-03-08 12:39] VITALS: BMI 31.4
--- NOTE | 2021-03-18 13:18 | ART_ITS ---
Reason For Study: CLAUDICATION Procedure A bilateral lower extremity continuous wave Doppler with analog waveform analysis and ankle brachial indexes. Left Segmental Pressures Left brachial= 133mmHg. Left posterior tibial artery = 95mmHg. Left dorsalis pedis artery = 86mmHg. Left digit = 66 mmHg. The left dorsalis pedis waveforms are monophasic. The left posterior tibial artery waveforms are monophasic. Right Segmental Pressures Right brachial= 138mmHg. Right posterior tibial artery = 92mmHg. Right dorsalis pedis artery = 107mmHg. Right digit = 73 mmHg. The right posterior tibial artery waveforms are biphasic. The right dorsalis pedis waveforms are monophasic. RT PT waveform did not save during transfer - waveform was biphasic with good amplitude. Indices The right ankle brachial index by the posterior tibial artery is .67. The right ankle brachial index by the dorsalis pedis is .78. The right digital-brachial index is .53. The left ankle brachial index by the posterior tibial artery is .69. The left ankle brachial index by the dorsalis pedis is .62. The left digital-brachial index is .48. VL/Ankle Brachial Index Interpretation Summary Abnormal right lower extremity biphasic Doppler waveform and monophasic right d orsalis pedis waveform with diminished right posterior tibial ankle-brachial index of 0.67 an d right ankle- brachial index at the dorsalis pedis is 0.78 consistent with moderately severe occlusive disease. Abnormal left lower extremity monophasic dorsalis pedis and posterior tibialis Doppler waveforms with abnormal left ankle-brachial index of 0.69 and dorsalis pedis ankle-brachi al index of 0.62 consistent with moderately severe disease. Abnormal right lower extremity digital brachial index 0.53 and abnormal left di gital brachial index of 0.48 Ordering Physician: Selene Reyes Referring Physician: NOHEMY DELA CRUZ Performed By: NAYELY ALONSO WONG
== END ==
PROVIDERS: PCP Internal Medicine; Referring Provider Physician Assistant; Visit Provider Physician Assistant
DX: I73.9 Peripheral vascular disease, unspecified (principal)
CPT/HCPCS: 93922

== ENCOUNTER → 2021-09-06 08:53 | Outpatient (CLI) | payer MEDICAID, SELFPAY ==
--- NOTE | 2021-09-06 08:56 | AAVD_ITS ---
Reason For Study: STRICTURE OF ARTERY Aorta Measurements Aorta Doppler Measurements Proximal aorta measures1.77 X 1.75cm. in cross- Peak systolic flow velocities within the proximal sectional axis. aorta measure 101.5 cm/sec. Proximal aorta measures1.76cm. in longitudinal Peak systolic flow velocities within the mid aorta axis. measure 91.6 cm/sec. Mid aorta measures1.62 X 1.61cm. in cross- Peak systolic flow velocities within the distal sectional axis. aorta measure 108.6 cm/sec. Mid aorta measures1.61cm. in longitudinal axis. Distal aorta measures1.69 X 1.69cm. in cross- sectional axis. Distal aorta measures1.67cm. in longitudinal axis. Left Iliac Artery Left iliac artery measures 1.44 X 1.49 cm. in the longitudinal axis. Left iliac artery measures 1.43 cm. in the cross-sectional axis. Peak systolic velocity in the left iliac artery measures 252.0 cm/sec. Right Iliac Artery Right iliac artery measures 1.41 X 1.44 cm. in the longitudinal axis. Right iliac artery measures 1.46 cm. in the cross-sectional axis. Peak systolic velocity in the right iliac artery measures 106.0 cm/sec. Procedure Aorta IVC Iliac vasculature or bypass grafts [id number]. Exam performed in department. VL/Abd Aortic/IVC Duplex scan Interpretation Summary Moderate left common iliac stenosisModerate left common iliac stenosis. No aneu rysm noted. Ordering Physician: Renard Peña Referring Physician: NOHEMY DELA CRUZ Performed By: Raquel Engel, TEVIN, RVT
--- NOTE | 2021-09-06 08:57 | ADU_ITS ---
Reason For Study: STRICTURE OF ARTERY Right Velocities Left Velocities Ext. Iliac Artery, dist = 91.8 cm./sec. Ext Iliac Artery, dist = 122.6 cm./sec. Common Femoral Artery, mid = 127.1 cm./sec. Common Femoral Artery, mid = 122.6 cm./sec. Supf Femoral Artery, prox = 47.4 cm./sec. Supf. Femoral Artery, prox = 405.7 cm./sec. Supf Femoral Artery, mid = 24.1 cm./sec. Supf. Femoral Artery, dist = 38.6 cm./sec. Supf Femoral Artery, dist. = 275.2 cm./sec. Profunda Femoral Artery = 227.1 cm./sec. Profunda Femoral Artery = 104.4 cm./sec. Popliteal Artery, mid = 43.0 cm./sec. Popliteal Artery, mid = 24.8 cm./sec. Post. Tibial Artery, prox = 32.7 cm./sec. Post. Tibial Artery, prox = 25.9 cm./sec. Post Tibial Artery, mid = 23.2 cm./sec. Post. Tibial Artery, mid = 40.2 cm./sec. Post Tibial Artery, dist. = 25.0 cm./sec. Post. Tibial Artery, dist = 46.8 cm./sec. Peroneal Artery, prox = 18.8 cm./sec. Peroneal Artery, prox = 14.4 cm./sec. Peroneal Artery, mid = 12.7 cm./sec. Peroneal Artery, mid = 13.9 cm./sec. Peroneal Artery,dist. = 9.9 cm./sec. Peroneal Artery,dist = 7.4 cm./sec. Ant.Tibial Artery, prox = 28.0 cm./sec. Ant. Tibial Artery, prox = 22.3 cm./sec. Ant Tibial Artery, mid = 30.0 cm./sec. Ant. Tibial Artery, mid = 13.3 cm./sec. Ant. Tibial Artery, distal = 29.0 cm./sec. Ant. Tibial Artery, dist = 12.0 cm./sec. /US Art Duplex Bilat Lower Ext Interpretation Summary Bilateral femoral artery with severe stenosis and monophasic flow below. Ordering Physician: Renard Peña Referring Physician: NOHEMY DELA CRUZ Performed By: Raquel Engel RDCS, RVT
--- NOTE | 2021-09-06 08:58 | ART_ITS ---
Reason For Study: ARTERY STRICTURE Procedure A bilateral lower extremity continuous wave Doppler with analog waveform analysis and ankle brachial indexes. Left Segmental Pressures Left brachial= 132mmHg. Left posterior tibial artery = 106mmHg. Left dorsalis pedis artery = 95mmHg. Left digit = 77 mmHg. The left posterior tibial artery waveforms are biphasic. The left dorsalis pedis waveforms are monophasic. Right Segmental Pressures Right brachial= 140mmHg. Right posterior tibial artery = 119mmHg. Right dorsalis pedis artery = 107mmHg. Right digit = 72 mmHg. The right posterior tibial artery waveforms are biphasic. The right dorsalis pedis waveforms are monophasic. Indices The right ankle brachial index by the dorsalis pedis is .76. The right ankle brachial index by the posterior tibial artery is .85. The right digital-brachial index is .51. The left ankle brachial index by the posterior tibial artery is .76. The left ankle brachial index by the dorsalis pedis is .68. The left digital-brachial index is .55. VL/Ankle Brachial Index Interpretation Summary Bilateral mild occlusive disease at rest. With biphasic flow noted. CHAY 0.85 on the right 0.76 on the left. Ordering Physician: Renard Peña Referring Physician: Renard Peña Performed By: NAYELY ALONSO [facility]
== END ==
PROVIDERS: PCP Internal Medicine; Referring Provider Surgery Vascular Surgery; Visit Provider Surgery Vascular Surgery
DX: I77.1 Stricture of artery (principal); I70.0 Atherosclerosis of aorta; I70.213 Atherosclerosis of native arteries of extremities with intermittent claudication, bilateral legs; M79.606 Pain in leg, unspecified; Z87.19 Personal history of other diseases of the digestive system; F17.200 Nicotine dependence, unspecified, uncomplicated; E78.00 Pure hypercholesterolemia, unspecified; E11.9 Type 2 diabetes mellitus without complications; I10 Essential (primary) hypertension
CPT/HCPCS: 93922; 93925; 93978

== ENCOUNTER 2021-12-26 16:39 | Observation (INO) | payer MEDICAID, SELFPAY ==
[2021-12-26] VITALS (10 sets, daily range): BP systolic 106–158; BP diastolic 66–101; PULSE 93–130; RESP 14–20; TEMP 36.8–39.3; O2SAT 97–99; BMI 34.9; BMI 36.3
--- NOTE | 2021-12-26 16:54 | EKG12_ITS ---
Test Reason : LOWER EXTREMITY Blood Pressure : / mmHG Vent. Rate : 115 BPM Atrial Rate : 115 BPM P-R Int : 146 ms QRS Dur : 088 ms QT Int : 308 ms P-R-T Axes : 062 076 024 degrees QTc Int : 426 ms Sinus tachycardia Otherwise normal ECG Confirmed by VAN DANIEL, HAWK ([id number]), book or script editor SANYA MCHUGH ([id number]) on 12/27/2021 10:31:03 AM Referred By: SHARRON Confirmed By:HAWK ARAUJO MD
--- NOTE | 2021-12-26 17:05 | ED.VIS.LOWEX ---
HPI History of Present Illness Chief Complaint: Lower Extremity Injury Narrative Narrative: 51-year-old male presenting for evaluation of left leg pain. It is fairly diffuse and has been going on for 2 to 3 days. Patient states that it feels like it is burning and painful. He has a small scab on the knee but there is erythema around the leg circumferentially in the neck calf and tibia region as well as erythema which spreads up the medial aspect of the left thigh. COPD is painful in the groin. Patient states he feels kind of unwell. He believes he might of had a fever at home. Patient states that he feels ill. He does not have a cough or shortness of breath. No chest pain. No abdominal pain. No urinary symptoms. He states that his blood sugars have been in the 350s range at home. He takes Metformin 500 mg twice daily, And long-acting insulin at night. Patient states he has not been drinking for about 5 years. He does smoke chronically. [facility] Medical History DM2 (diabetes mellitus, type 2) History of alcohol abuse Recurrent pancreatitis Tobacco abuse Home Medications lancets #100 ea 01/31/21 [Rx Last Taken Unknown] blood-glucose meter #1 ea 03/08/21 [Rx Last Taken Unknown] metformin 500 mg tablet 500 mg PO BID #180 tab 03/14/21 [Rx Last Taken 12/26/21] pen needle, diabetic 31 gauge x 12/14 #50 ea 03/14/21 [Rx Last Taken Unknown] blood sugar diagnostic #100 ea 05/24/21 [Rx Last Taken Unknown] rosuvastatin 20 mg tablet 20 mg PO DAILY #90 tab 05/24/21 [Rx Last Taken 12/26/21] insulin glargine [Lantus U-100 Insulin] 12 unit SUBCUT QPM 12/26/21 [History Last Taken 12/26/21] Allergy/AdvReac Type Severity Reaction Status Date / Time No Known Allergies Allergy Verified 12/26/21 16:40 Family History Father Cancer Other Abuse, drug or alcohol Social History Smoking Status: Current every day smoker tobacco type: cigarettes Tobacco: How many years used: 25 alcohol intake: former year quit: 2019 substance use type: marijuana what type of physical activity do you participate in: none ROS ROS ED Constitutional Constitutional ED: Reports chills and fever(s) Eyes Eyes: Denies blurry vision or diplopia ENT ENT ED: Denies rhinorrhea or sore throat Cardiovascular Cardiovascular: Denies chest pain or palpitations Respiratory/Chest Respiratory/Chest: Denies cough or dyspnea Gastrointestinal Gastrointestinal: Denies abdominal pain, nausea or vomiting Genitourinary Genitourinary ED: Denies dysuria or hematuria Musculoskeletal Musculoskeletal: Reports myalgias and other Details: Left leg pain and swelling Integumentary Reports rash Neurologic Neurologic: Denies headache(s) or paresthesias Psychiatric Psychiatric: Denies anxiety or depression EXAM Physical Exam Const Vital Signs: 12/26/21 16:40 12/26/21 17:07 12/26/21 17:30 Temperature 98.3 F 102.8 F H Temperature Source Temporal Oral Pulse Rate 130 H 113 H Respiratory Rate 16 18 Blood Pressure 135/101 H 158/95 H Blood Pressure Mean 112 116 Pulse Ox 98 99 Oxygen Delivery Method Room Air Room Air Room Air 12/26/21 18:00 12/26/21 18:04 12/26/21 18:54 Temperature 100.6 F H 101.6 F H Temperature Source Oral Oral Pulse Rate 107 H 104 H Respiratory Rate 14 18 Blood Pressure 151/77 H 120/71 Blood Pressure Mean 101 87 Pulse Ox 98 98 Oxygen Delivery Method Room Air Room Air 12/26/21 19:38 Temperature 102.6 F H Temperature Source Oral Pulse Rate Respiratory Rate Blood Pressure Blood Pressure Mean Pulse Ox Oxygen Delivery Method Positive well nourished General Appearance ED: NAD HEENT normocephalic and atraumatic Eyes PERRL Chest Wall inspection of chest normal Resp normal respiratory effort and clear to auscultation bilaterally Cardio regular rhythm Rate: tachycardic GI non-tender and non-distended Palpation: soft Extremity Extremity Narrative: Diffuse erythema around the left lower extremity circumferentially around the calf and the tibial region. No crepitance. Compartments are soft. There is extension of this erythema up the leg and the medial aspect of the thigh almost to the inguinal region. There is palpable lymphadenopathy in the left inguinal region. There is a small scab on the medial aspect of the left knee which could be the nidus for infection. Patient able to range his knee without difficulty. Neuro oriented x3 Sensorium / Orientation: alert Psych mental status grossly normal Skin Skin Narrative: As described above MDM MDM MDM Narrative Medical decision making narrative: Patient presenting with circumferential cellulitis on the left lower extremity extending up the medial thigh with left inguinal lymphadenopathy. Heart rate is 130. He is found to have a temperature of 102.2. Septic work-up was started. Patient given 30 cc/kg IV bolus of normal saline. Tylenol 1 g, vancomycin and Zosyn, morphine and Zofran. Duplex ultrasound of the left lower extremity is negative for DVT but does show lymph nodes. There is also visualized nonvascular arterial disease. Patient's blood work shows that he has a white blood cell count of 18.1 with a left shift. Coagulation studies are normal. Renal function and electrolytes within normal limits with exception of a sodium of 130. Glucose 208 without anion gap. Liver function testing is normal. Urinalysis negative for infection. Lactic acid 2.0. Nursing came to me at 743 and told me that his fever had continued. He was given IV Toradol. Chest x-ray on my interpretation shows no acute cardiopulmonary process and the radiologist agree. Blood cultures pending. Urine cultures pending. Since patient has a significant white count, continued pain, continued fever I believe he needs to be admitted to the hospital. I spoke with the hospitalist and is transferred to the floor in stable condition. Impression: 1. Tachycardia 2. Febrile illness 3. Left leg cellulitis 4. Leukocytosis 5. Hyponatremia 6. Hyperglycemia Lab Data Attestation: I reviewed the patient's lab results. Labs: Laboratory Results - last 24 hr 12/26/21 12/26/21 12/26/21 16:54 17:03 17:03 WBC 18.1 H RBC 5.64 Hgb 17.0 H Hct 48.8 MCV 86.5 MCH 30.1 MCHC 34.8 RDW Std Deviation 40.6 RDW Coeff of Maty 12.9 Plt Count 210 MPV 9.5 Immature Gran % (Auto) 0.600 Neut % (Auto) 81.2 H Lymph % (Auto) 8.9 L Eddy % (Auto) 9.0 Eos % (Auto) 0.0 Baso % (Auto) 0.3 Absolute Neuts (auto) 14.7 H Absolute Lymphs (auto) 1.62 Nucleated RBC % 0 Differential Comment SEE COMMENT Diff Path Review May foll Platelet Estimate ADEQUATE RBC Morphology N CHROM Anisocytosis RARE PT 13.5 INR 1.1 APTT 31.0 Sodium 130 L Potassium 3.8 Chloride 97 L Carbon Dioxide 24.0 Anion Gap 9 BUN 15 Creatinine 1.30 Estim Creat Clear Calc 57.16 Est GFR (MDRD) Af Amer 74 Est GFR (MDRD) Non-Af 61 BUN/Creatinine Ratio 11.5 Glucose 208 H Lactic Acid Calcium 8.5 Total Bilirubin 0.40 AST 23 ALT 36 Alkaline Phosphatase 78 Troponin I High Sens 5 Total Protein 7.5 Albumin 3.2 Globulin 4.3 H Albumin/Globulin Ratio 0.7 L Urine Color Urine Clarity Urine pH Ur Specific [place] Urine Protein Urine Glucose (UA) Urine Ketones Urine Occult Blood Urine Nitrite Urine Bilirubin Urine Urobilinogen Ur Leukocyte Esterase Urine RBC Urine WBC Ur Squamous Epith Cells Urine Bacteria Urine Mucus 12/26/21 12/26/21 17:03 18:55 WBC RBC Hgb Hct MCV MCH MCHC RDW Std Deviation RDW Coeff of Maty Plt Count MPV Immature Gran % (Auto) Neut % (Auto) Lymph % (Auto) Eddy % (Auto) Eos % (Auto) Baso % (Auto) Absolute Neuts (auto) Absolute Lymphs (auto) Nucleated RBC % Differential Comment Diff Path Review Platelet Estimate RBC Morphology Anisocytosis PT INR APTT Sodium Potassium Chloride Carbon Dioxide Anion Gap BUN Creatinine Estim Creat Clear Calc Est GFR (MDRD) Af Amer Est GFR (MDRD) Non-Af BUN/Creatinine Ratio Glucose Lactic Acid 2.0 Calcium Total Bilirubin AST ALT Alkaline Phosphatase Troponin I High Sens Total Protein Albumin Globulin Albumin/Globulin Ratio Urine Color Yellow Urine Clarity Sl. Cloudy Urine pH 6.0 Ur Specific [place] 1.015 Urine Protein 30 H Urine Glucose (UA) 50 H Urine Ketones Negative Urine Occult Blood 50 H Urine Nitrite Negative Urine Bilirubin Negative Urine Urobilinogen Normal Ur Leukocyte Esterase Negative Urine RBC 0 SEEN Urine WBC 0 SEEN Ur Squamous Epith Cells 0 SEEN Urine Bacteria 0 SEEN Urine Mucus 0 SEEN Radiography Diagnostic Testing: Clinical Impression(s) from Imaging Studies Chest X-Ray 12/26/21 17:34 IMPRESSION: There are no acute findings. Electronically Signed: Trell Newsome MD at 17:44 EDT , Discharge Plan Triage Chief Complaint: Lower Extremity Injury ED Provider: Juan Connors Dx/Rx/DC Orders Primary Care Provider: Jordyn Proctor
[2021-12-26 17:13] LABS: Absolute Lymphocyte Count 1.62 X10^3/uL (0.83-4.51); Absolute Neutrophil Count 14.7 X10^3/uL (2.0-7.7); Basophil# 0.05 X10^3/uL; Basophil% 0.3 % (0-1); Hematocrit 48.8 % (40-54); Lymphocyte # 1.62 X10^3/ul (0.83-4.51); Lymphocyte % 8.9 % (19-41); Mean Corp Hgb Conc 34.8 g/dL (32-36); Mean Corpuscular Hgb 30.1 pg (27.0-32.0); Mean Corpuscular Volume 86.5 fL (80-94); Mean Platelet Vol. 9.5 fl (6.2-12.0); Monocyte# 1.64 X10^3/uL; NRBC Flagged by Analyzer 0 % (0-5); Neutrophil # 14.72 X10^3/uL (2.7-7.7); Neutrophil % 81.2 % (47-70); POSITIVE DIFFERENTIAL YES; Platelet Count 210 K/mm3 (150-450); RBC Distribution Width CV 12.9 % (11.6-14.6); RBC Distribution Width SD 40.6 fl (35.1-43.9); Red Blood Count 5.64 M/mm3 (4.6-6.2); White Blood Count 18.1 K/mm3 (4.4-11.0)
[2021-12-26] MEDS: 0.9% Normal Saline 1,000 ML 999 ML IV ×2 (17:13→18:02)
[2021-12-26] MEDS: Morphine 4 MG/ML Syringe IV (17:13)
[2021-12-26] MEDS: Ondansetron 4 MG/2 ML Vial IV (17:14)
[2021-12-26] MEDS: Acetaminophen 500 MG Tablet 1000 MG PO (17:15)
--- NOTE | 2021-12-26 17:23 | US_ITS ---
STUDY: VENOUS DOPPLER ULTRASOUND - LEFT LOWER EXTREMITY REASON FOR EXAM: Male, 51 years old. LEG PAIN AND SWELLING LLE PAIN TECHNIQUE: Ultrasound evaluation of the deep vein system to include kim-scale imaging and compression was performed. Kim-scale imaging and Doppler sonographic evaluation, including duplex spectral analysis and qualitative color flow sonography, was performed. COMPARISON: 09/06/2021 arterial duplex. FINDINGS: Common Femoral Vein: Normal compression, spontaneity and augmentation. Normal color Doppler. Common Femoral Vein/Greater Saphenous Junction: Normal compression, spontaneity and augmentation. Normal color Doppler. Superficial Femoral Proximal: Normal compression, spontaneity and augmentation. Normal color Doppler. Superficial Femoral Middle: Normal compression, spontaneity and augmentation. Normal color Doppler. Superficial Femoral Distal: Normal compression, spontaneity and augmentation. Normal color Doppler. Popliteal Vein: Normal compression, spontaneity and augmentation. Normal color Doppler. Posterior Tibial Vein: Normal compression, spontaneity and augmentation. Normal color Doppler. Peroneal Vein: Normal compression, spontaneity and augmentation. Normal color Doppler. Left inguinal lymph nodes. This measures 36 x 46 mm. 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 This appears chronic. There is no demonstrated deep venous thrombosis. US/Venous Duplex Imag/Limited/Uni IMPRESSION: There is no demonstrated deep venous thrombosis. 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 This appears chronic. Dedicated arterial duplex can evaluate fully. Electronically Signed: Trell Newsome MD at 20:03 EDT ,
[2021-12-26 17:27] LABS: International Normalized Ratio 1.1; Prothrombin Time (Protime)PT. 13.5 SECONDS (11.7-14.9)
[2021-12-26 17:30] LABS: Differential Indicated SCAN CRITERIA MET
--- NOTE | 2021-12-26 17:34 | RAD_ITS ---
STUDY: X-RAY CHEST REASON FOR EXAM: Male, 51 years old. LT LEG TIGHT AND PAINFUL X 2 DAYS. ALSO C/O CONGESTION. fever TECHNIQUE: XR Chest 1 View COMPARISON: 07.25.19 FINDINGS: There is no demonstrated pleural abnormality. Normal size heart. Normal mediastinum and santhosh. Normal visualized pulmonary arteries. There is atherosclerotic calcification of the aortic arch with tortuosity. Normal visualized thoracic spine. Normal visualized ribs, clavicles, and shoulders. There is no demonstrated abnormality of the visualized soft tissue structures of the upper abdomen. RAD/Chest 1 View (Portable) IMPRESSION: There are no acute findings. Electronically Signed: Trell Newsome MD at 17:44 EDT ,
[2021-12-26 17:38] LABS: Anisocytosis RARE; Platelet Estimate ADEQUATE (ADEQ); Red Cell Morphology N CHROM NORMAL (NORM C&C)
[2021-12-26 18:51] LABS: ALB/GLOB Ratio 0.7 RATIO (0.9-2.4); Albumin, Serum 3.2 g/dL (3.2-5.0); BUN 15 mg/dL (7-18); BUN/Creat Ratio 11.5 RATIO (10-20); EST Glomerular Filtration Rate 61 mL/min (>60); Est Glom Filt Rate - Afr Amer 74 mL/min (>60); Estimated Creatinine Clearance 57.16 ml/min; Globulin 4.3 g/dL (2.2-4.2); Glucose 208 mg/dL (74-106); Protein, Total 7.5 g/dL (6.4-8.2)
[2021-12-26 18:52] LABS: AST(SGOT) 23 U/L (15-37); Alanine Aminotransfer ALT/SGPT 36 U/L (16-61); Alkaline Phosphatase 78 U/L (45-117); Anion Gap 9 (5-15); Calcium,Total 8.5 mg/dL (8.5-10.1); Chloride 97 mmol/L (98-107); Potassium 3.8 mmol/L (3.5-5.1); Sodium Level 130 mmol/L (136-145); Troponin-I HS 5 pg/mL (3.0-78.0)
--- NOTE | 2021-12-26 18:56 | ED.RN ---
PT. ACCIDENTALLY PULLED OUT BOTH IV SITES. RAC RESTARTED WITH 20G.
[2021-12-26 19:06] LABS: Bacteria 0 SEEN /hpf (None Seen); Mucous, Urine 0 SEEN /hpf (<or=2+); Red Blood Cells-Urine 0 SEEN /hpf (0-5); Squamous Epithelial Cells - UA 0 SEEN /hpf (0-5); White Blood Cells 0 SEEN /hpf (0-5)
[2021-12-26 19:19] LABS: Color, Urine Yellow (Yellow); Glucose, Dipstick 50 mg/dl (Normal); Ketone-Dipstick Negative (Negative); Leukocyte Esterase-Dipstick Negative /ul (Negative); Nitrite-Dipstick Negative (Negative); Occult Blood-Urine 50 /ul (Negative); Protein-Dipstick 30 mg/dl (Negative); Specific Gravity, Urine 1.015 (1.002-1.030); Urine Bilirubin Dipstick Negative (Negative); Urine Clarity Sl. Cloudy (Clear); Urine Urobilinogen Normal (Normal)
[2021-12-26] MEDS: Ketorolac 15 MG/ML Vial IV (19:41)
--- NOTE | 2021-12-26 19:49 | PCM.HP.STD ---
[facility] - General General Date of Admission: 12/26/21 HPI Narrative MAULIK ELIZONDO, is a 51 M with a significant history of diabetes mellitus who presents at the emergency department with a 2-day history of redness of his left leg. His first started with cramping pain in his left leg. The pain in his left leg increases with stretching. His symptoms has been progressively worsening He reports chills and rigors. He denies checking his temperature at home. He reports anorexia. [facility] Medical History DM2 (diabetes mellitus, type 2) History of alcohol abuse Recurrent pancreatitis Tobacco abuse Home Medications lancets #100 ea 01/31/21 [Rx Last Taken Unknown] blood-glucose meter #1 ea 03/08/21 [Rx Last Taken Unknown] metformin 500 mg tablet 500 mg PO BID #180 tab 03/14/21 [Rx Last Taken 12/26/21] pen needle, diabetic 31 gauge x 3/16 #50 ea 03/14/21 [Rx Last Taken Unknown] blood sugar diagnostic #100 ea 05/24/21 [Rx Last Taken Unknown] rosuvastatin 20 mg tablet 20 mg PO DAILY #90 tab 05/24/21 [Rx Last Taken 12/26/21] insulin glargine [Lantus U-100 Insulin] 12 unit SUBCUT QPM 12/26/21 [History Last Taken 12/26/21] Allergy/AdvReac Type Severity Reaction Status Date / Time No Known Allergies Allergy Verified 12/26/21 16:40 Family History Father Cancer Other Abuse, drug or alcohol Surgical History unable to obtain unable to obtain (Reports history when he was a child. But unable to tell the type of surgery he had.) Social History Smoking Status: Current every day smoker tobacco type: cigarettes Tobacco: How many years used: 25 alcohol intake: former year quit: 2018 substance use type: marijuana what type of physical activity do you participate in: none ROS ROS Narrative Constitutional: Reports chills and rigors. Reports anorexia. Denies change in weight Eyes: Denies blurry vision, change in eye color, change in vision, discharge from eye(s), double vision, erythema, eye pain, loss of vision or other HEENT: Denies abnormal hearing, dysphagia, ear pain, epistaxis, headache(s), hearing loss, nasal congestion, nasal discharge, post nasal drip, sinus pressure, sore throat or other Cardiovascular: Denies chest pain or palpitations. Denies dyspnea on exertion, orthopnea and paroxysmal nocturnal dyspnea Respiratory/Chest: Denies cough, excessive phlegm production, shortness of breath with exertion and wheezing Gastrointestinal:Denies abdominal pain, coffee ground emesis, constipation, diarrhea, dyspepsia, hematemesis, hematochezia, loose stools, melena, nausea, vomiting or other Genitourinary: Reports difficulty in initiating urination. Denies burning urination, hematuria. Musculoskeletal: Reports left leg pain. Denies back pain. Neurologic: Denies abnormal gait, abnormal speech, confusion, disequilibrium, dizziness, focal weakness, headache(s), numbness, paresthesias, seizure-like activity, seizures, syncope, tingling, tremor(s) or other Psychiatric: Denies anxiety, depression, homicidal ideation, suicidal ideation or other Endocrinology: Denies change in body appearance, cold intolerance, excessive sweating, heat intolerance, polydipsia, polyuria or other Hematologic/Lymphatic: With left groin lymphadenopathy. Denies anemia, easy bleeding, easy bruising, or other Integumentary: Reports erythema of left leg. Allergic/Immunologic: Denies rhinitis, hives, eczema, or other Vital Signs Vital Signs Vital Signs: 12/26/21 16:40 12/26/21 17:07 12/26/21 17:30 Temperature 98.3 F 102.8 F H Temperature Source Temporal Oral Pulse Rate 130 H 113 H Respiratory Rate 16 18 Blood Pressure 135/101 H 158/95 H Blood Pressure Mean 112 116 Pulse Ox 98 99 Oxygen Delivery Method Room Air Room Air Room Air 12/26/21 18:00 12/26/21 18:04 12/26/21 18:54 Temperature 100.6 F H 101.6 F H Temperature Source Oral Oral Pulse Rate 107 H 104 H Respiratory Rate 14 18 Blood Pressure 151/77 H 120/71 Blood Pressure Mean 101 87 Pulse Ox 98 98 Oxygen Delivery Method Room Air Room Air 12/26/21 19:38 12/26/21 19:43 Temperature 102.6 F H 102.6 F H Temperature Source Oral Oral Pulse Rate 93 Respiratory Rate 18 Blood Pressure 115/66 Blood Pressure Mean 82 Pulse Ox 97 Oxygen Delivery Method Room Air Weight Weight: 95.254 kg Body Mass Index (BMI) 34.9 Physical Exam Narrative Physical exam: General: Well-nourished, well-developed. Head: Normocephalic, atraumatic, no tenderness Eyes: Vision is grossly intact. EOMI ENT, no trauma, moist mucous membranes, no rhinorrhea Neck: Nontender, full range of motion, no spinal tenderness, deformities, step-off CVS: Regular rate and rhythm. S1-S2 present. No murmur, gallop or rub. Respiratory : clear to auscultation bilaterally, chest wall nontender, no wheezing Abdomen: Soft, nontender, nondistended, normal bowel sounds, no masses : Deferred Back: Nontender, no CVA tenderness, no midline spinal tenderness, deformities, step-offs Extremities: Erythema of left leg with tender Lymph adenopathy. Scabbed left knee. Full range of motion, no trauma Skin: Normal color, no trauma, abrasions Neuro: Alert, oriented, cranial nerves II through XII grossly intact. Psychiatry: Normal mood. Normal affect. Not depressed. Not anxious. Results Lab / Micro Data Result Diagrams: 12/26/21 17:03 12/26/21 17:03 Labs: Laboratory Results - last 24 hr 12/26/21 16:54: PT 13.5, INR 1.1, APTT 31.0 12/26/21 17:03: WBC 18.1 H, RBC 5.64, Hgb 17.0 H, Hct 48.8, MCV 86.5, MCH 30.1, MCHC 34.8, RDW Std Deviation 40.6, RDW Coeff of Maty 12.9, Plt Count 210, MPV 9.5, Immature Gran % (Auto) 0.600, Neut % (Auto) 81.2 H, Lymph % (Auto) 8.9 L, [place] % (Auto) 9.0, Eos % (Auto) 0.0, Baso % (Auto) 0.3, Absolute Neuts (auto) 14.7 H, Absolute Lymphs (auto) 1.62, Nucleated RBC % 0, Differential Comment SEE COMMENT, Diff Path Review May foll, Platelet Estimate ADEQUATE, RBC Morphology N CHROM, Anisocytosis RARE 03/28/22 17:03: Sodium 130 L, Potassium 3.8, Chloride 97 L, Carbon Dioxide 24.0, Anion Gap 9, BUN 15, Creatinine 1.30, Estim Creat Clear Calc 57.16, Est GFR (MDRD) Af Amer 74, Est GFR (MDRD) Non-Af 61, BUN/Creatinine Ratio 11.5, Glucose 208 H, Calcium 8.5, Total Bilirubin 0.40, AST 23, ALT 36, Alkaline Phosphatase 78, Troponin I High Sens 5, Total Protein 7.5, Albumin 3.2, Globulin 4.3 H, Albumin/Globulin Ratio 0.7 L 12/26/21 17:03: Lactic Acid 2.0 12/26/21 18:55: Urine Color Yellow, Urine Clarity Sl. Cloudy, Urine pH 6.0, Ur Specific [place] 1.015, Urine Protein 30 H, Urine Glucose (UA) 50 H, Urine Ketones Negative, Urine Occult Blood 50 H, Urine Nitrite Negative, Urine Bilirubin Negative, Urine Urobilinogen Normal, Ur Leukocyte Esterase Negative, Urine RBC 0 SEEN, Urine WBC 0 SEEN, Ur Squamous Epith Cells 0 SEEN, Urine Bacteria 0 SEEN, Urine Mucus 0 SEEN Micro: Microbiology 12/26/21 17:25 Nasal Secretion SARS-CoV-2 Antigen (Rapid) - Final Radiology Impression Chest X-Ray 12/26/21 17:34 IMPRESSION: There are no acute findings. Electronically Signed: Trell Newsome MD at 17:44 EDT Reading Location ID and State: [address] [place] [address] , Service support , Assessment & Plan Assessment/Plan (1) Cellulitis: QUALIFIERS: Laterality: left Site of cellulitis: extremity Site of cellulitis of extremity: lower extremity Qualified Code(s): L03.116 - Cellulitis of left lower limb (2) Urinary hesitancy: PLAN: Cellulitis SIRS criteria: On presentation patient met SIRS criteria with heart rate as high as 130. T-max is 102.8. White count is 18.1. Noted neutrophilia with lymphopenia qSOFA is 0. Sepsis ruled out. Chest x-ray was visualized and independently interpreted. I agree with interpretation of no acute cardiopulmonary process. Ultrasound duplex with arterial occlusion of the SFA, appears chronic. Dedicated arterial duplex was recommended. Review of vascular test/LEAS/visual UEAS showed bilateral femoral artery with severe stenosis and monophasic flow below. Recommend patient follow-up with vascular on discharge. Blood culture x2 done at the emergency department, follow. Rapid Covid antigen done at the emergency department was negative. Urinalysis noted for protein of 30; and urine occult blood; unremarkable for infection. Vancomycin and Zosyn started emergency department and continued. Received Tylenol and Toradol at the emergency department for fever. Tylenol as needed and ibuprofen as needed ordered. Urinary hesitancy Flomax started Diabetes mellitus Patient with hyperglycemia on presentation Basal insulin continued. Metformin held Accu-Chek QA [facility] with correction scale insulin ordered. Hyponatremia Sodium 130 on presentation. Glucose of 208. Corrected sodium of 132. Gentle IV hydration with normal saline. Trend BMP Erythrocytosis Review of labs showed hemoglobin of 17.0 Chronic Leg secondary to smoking. Trend CBC Tobacco abuse Counseled Nicotine patch prescribed. DVT Prophylaxis: Lovenox ordered Charges/Coding Visit Charges Inpatient E&M: 36240 Init Hosp L3
[2021-12-26 21:08] LABS: Reflex Lactate? Y
--- NOTE | 2021-12-26 22:42 | PCM.RX.CS ---
Consult Pharmacy has been consulted to manage selected antiobiotic: Vancomycin Type of Consult: New start Suspected Infection: Skin/Soft tissue Prior Doses of Antibiotics Received/Current Regimen: Medications Piperacillin Sod/Tazobactam Sod (Zosyn) 3.375 gm in 50 mls @ 12.5 mls/hr IV Q8 DARIN Labs: Sodium 130 mmol/L (136-145) L 12/26/21 17:03 Potassium 3.8 mmol/L (3.5-5.1) 12/26/21 17:03 Chloride 97 mmol/L (98-107) L 12/26/21 17:03 Carbon Dioxide 24.0 mmol/L (21.0-32.0) 12/26/21 17:03 Anion Gap 9 (5-15) 12/26/21 17:03 BUN 15 mg/dL (7-18) 12/26/21 17:03 Creatinine 1.30 mg/dL (0.70-1.30) 12/26/21 17:03 Est GFR (MDRD) Af Amer 74 mL/min (>60) 12/26/21 17:03 Est GFR (MDRD) Non-Af 61 mL/min (>60) 12/26/21 17:03 BUN/Creatinine Ratio 11.5 RATIO (10-20) 12/26/21 17:03 Glucose 208 mg/dL (74-106) H 12/26/21 17:03 Microbiology: Microbiology 12/26/21 17:25 Nasal Secretion SARS-CoV-2 Antigen (Rapid) - Final Weight used for dosin.9 kg Estimated Creatinine Clearance: 71 Goal Trough: 15-20 mcg/mL Pharmacy Plan for Drug Dosing: Pharmacy Service will continue to monitor and adjust dosing as required. Medications Discontinued Medications Vancomycin HCl 1,500 mg/ (Sodium Chloride) 530 mls @ 250 mls/hr IV X1 ONE Stop: 12/26/21 19:00 Last Admin: 12/26/21 20:43 Dose: Infused Documented by: Follow-Up Labs: Trough Vancomycin Labs to be done on [date and time ordered]: 12/28 @ 7347
[2021-12-26 23:06] LABS: Bedside Glucose 180 mg/dL (74-106)
[2021-12-26] MEDS: 0.9% Normal Saline 1,000 ML 75 ML IV (23:08)
[2021-12-26] MEDS: Atorvastatin Calcium 40 MG Tablet PO (23:09)
[2021-12-26] MEDS: Tamsulosin HCl 0.4 MG Capsule PO (23:09)
[2021-12-26] MEDS: Acetaminophen 325 MG Tablet 650 MG PO (23:09)
[2021-12-26] MEDS: Insulin Glargine-YFGN 100 UNIT/ML Pen 12 UNIT SC (23:10)
[2021-12-26] MEDS: Insulin Lispro 100 UNIT/ML INSULN.PEN SC (23:12)
[2021-12-26] MEDS: Piperacil/Tazobactam 3.375 GM/50 ML ML IV (23:44)
[2021-12-27] VITALS (8 sets, daily range): BP systolic 118–128; BP diastolic 73–82; PULSE 73–96; RESP 16–18; TEMP 36.8–38.1; O2SAT 92–98
[2021-12-27] MEDS: Ibuprofen 400 MG Tablet PO ×2 (03:53→21:43)
[2021-12-27] MEDS: Piperacil/Tazobactam 3.375 GM/50 ML ML IV (05:29)
[2021-12-27 06:51] LABS: Bedside Glucose 148 mg/dL (74-106)
[2021-12-27 07:16] LABS: Absolute Lymphocyte Count 2.45 X10^3/uL (0.83-4.51); Basophil# 0.04 X10^3/uL; Basophil% 0.3 % (0-1); Eosinophil# 0.04 X10^3/uL; Eosinophils% 0.3 % (0-5); Hematocrit 44.7 % (40-54); Hemoglobin 15.5 g/dL (13.0-16.5); Lymphocyte # 2.45 X10^3/ul (0.83-4.51); Lymphocyte % 20.4 % (19-41); Mean Corp Hgb Conc 34.7 g/dL (32-36); Mean Corpuscular Volume 86.6 fL (80-94); Mean Platelet Vol. 9.5 fl (6.2-12.0); Monocyte# 1.45 X10^3/uL; Monocyte% 12.1 % (0-10); NRBC Flagged by Analyzer 0 % (0-5); Neutrophil # 7.95 X10^3/uL (2.7-7.7); Neutrophil % 66.4 % (47-70); Platelet Count 182 K/mm3 (150-450); RBC Distribution Width CV 13.2 % (11.6-14.6); RBC Distribution Width SD 41.7 fl (35.1-43.9); Red Blood Count 5.16 M/mm3 (4.6-6.2)
[2021-12-27 07:31] LABS: Anion Gap 7 (5-15); BUN 12 mg/dL (7-18); BUN/Creat Ratio 12.8 RATIO (10-20); Calcium,Total 7.8 mg/dL (8.5-10.1); Chloride 106 mmol/L (98-107); Creatinine, Serum 0.94 mg/dL (0.70-1.30); EST Glomerular Filtration Rate 89 mL/min (>60); Est Glom Filt Rate - Afr Amer 108 mL/min (>60); Glucose 128 mg/dL (74-106); Potassium 3.5 mmol/L (3.5-5.1); Sodium Level 137 mmol/L (136-145)
[2021-12-27 07:50] LABS: Hemoglobin A1c 8.2 % (3.8-5.6)
[2021-12-27] MEDS: Enoxaparin 40 MG/0.4 ML Syringe SC (10:30)
[2021-12-27] MEDS: 0.9% Saline Lock 10 ML Syringe IV (10:34)
[2021-12-27] MEDS: Insulin Lispro 100 UNIT/ML INSULN.PEN SC ×3 (11:55→21:38)
--- NOTE | 2021-12-27 12:35 | CASEMGMT ---
SHAVONNE NARVAEZ Assessment: Face to Face with pt for initial transition planning/care coordination assessment. SHAVONNE NARVAEZ introduced self and role at [facility], pt voices understanding and consents to assessment. Pt is A/O x4 and answers all questions appropriately at this time. Pt lying in bed with eyes closed for assessment, in no distress. Care providers, pharmacy, and demographics verified/updated. Admitting Dx: cellulitis PCP:Esthela Specialists:Pt denies. Preferred Pharmacy: [facility] Insurance: [facility] Prescription Benefit: yes LW/HPOA: Pt denies having a LW/DPOA and denies need for info regarding AD. LNOK: Araseli Givens, sig other Living Arrangements: Pt lives with sig other and two grandchildren in a two story house with 1 step to enter. Pt reports he is I in ADL's and denies concerns at home. Transportation: Pt states he does not have a license and has friends or family transport him to medical appts. Pt denies concerns with transportation. DME/HHC/SNF: Pt has a BGM at home with strips and lancets as well as insulin and supplies. Pt denies any AD. Pt denies hx of HHC or SNF stays. Pt states no concerns with going home at time of dc. Pt states no further concerns/needs. CM to follow. Advised pt to ask CM if any further question/concerns/needs arise, voices understanding. Pt Goal: Home Plan: Home
[2021-12-27 12:36] LABS: Bedside Glucose 186 mg/dL (74-106)
[2021-12-27] MEDS: 0.9% Normal Saline 1,000 ML 75 ML IV (14:16)
[2021-12-27 14:25] LABS: Pathologist Review Reviewed
--- NOTE | 2021-12-27 15:46 | PN.HOSP_ITS ---
Subjective Subjective Patient reports that his leg is feeling better. He indicates he would like to go home today however I did discuss with him I feel he needs another at least 24 hours of antibiotics. He does have a cut on his left knee and states that he feels that this is where the infection started. Objective Data Objective Data Vital Signs: Vital Signs Temp Pulse Resp BP Pulse Ox 98.3 F 92 16 126/82 H 95 12/27/21 14:20 12/27/21 14:20 12/27/21 14:20 12/27/21 14:20 12/27/21 14:20 Oxygen Delivery Method Room Air Weight: 98.883 kg Body Mass Index (BMI) 36.3 Intake & Output: Intake and Output for Last 24 Hours 12/25/21 12/26/21 12/27/21 23:59 23:59 23:59 Intake Total 3480.0 / 3480.0 2105.25 / 2105.25 Balance 3480.0 / 3480.0 2105.25 / 2105.25 Lab / Micro Data Result Diagrams: 12/27/21 06:50 12/27/21 06:50 Labs: Laboratory Results - last 24 hr 12/26/21 16:54: PT 13.5, INR 1.1, APTT 31.0 12/26/21 17:03: WBC 18.1 H, RBC 5.64, Hgb 17.0 H, Hct 48.8, MCV 86.5, MCH 30.1, MCHC 34.8, RDW Std Deviation 40.6, RDW Coeff of Maty 12.9, Plt Count 210, MPV 9.5, Immature Gran % (Auto) 0.600, Neut % (Auto) 81.2 H, Lymph % (Auto) 8.9 L, [place] % (Auto) 9.0, Eos % (Auto) 0.0, Baso % (Auto) 0.3, Absolute Neuts (auto) 14.7 H, Absolute Lymphs (auto) 1.62, Nucleated RBC % 0, Differential Comment SEE COMMENT, Diff Path Review Reviewed, Platelet Estimate ADEQUATE, RBC Morphology N CHROM, Anisocytosis RARE 12/26/21 17:03: Sodium 130 L, Potassium 3.8, Chloride 97 L, Carbon Dioxide 24.0, Anion Gap 9, BUN 15, Creatinine 1.30, Estim Creat Clear Calc 57.16, Est GFR (MDRD) Af Amer 74, Est GFR (MDRD) Non-Af 61, BUN/Creatinine Ratio 11.5, Glucose 208 H, Calcium 8.5, Total Bilirubin 0.40, AST 23, ALT 36, Alkaline Phosphatase 78, Troponin I High Sens 5, Total Protein 7.5, Albumin 3.2, Globulin 4.3 H, Albumin/Globulin Ratio 0.7 L 12/26/21 17:03: Lactic Acid 2.0 12/26/21 18:55: Urine Color Yellow, Urine Clarity Sl. Cloudy, Urine pH 6.0, Ur Specific [place] 1.015, Urine Protein 30 H, Urine Glucose (UA) 50 H, Urine Ketones Negative, Urine Occult Blood 50 H, Urine Nitrite Negative, Urine Bilirubin Negative, Urine Urobilinogen Normal, Ur Leukocyte Esterase Negative, Urine RBC 0 SEEN, Urine WBC 0 SEEN, Ur Squamous Epith Cells 0 SEEN, Urine Bacteria 0 SEEN, Urine Mucus 0 SEEN 12/26/21 21:30: Lactic Acid 2.0 12/26/21 22:56: POC Glucose 180 H 12/27/21 06:45: POC Glucose 148 H 12/27/21 06:50: WBC 12.0 H, RBC 5.16, Hgb 15.5, Hct 44.7, MCV 86.6, MCH 30.0, MCHC 34.7, RDW Std Deviation 41.7, RDW Coeff of Maty 13.2, Plt Count 182, MPV 9.5, Immature Gran % (Auto) 0.500, Neut % (Auto) 66.4, Lymph % (Auto) 20.4, [place] % (Auto) 12.1 H, Eos % (Auto) 0.3, Baso % (Auto) 0.3, Absolute Neuts (auto) 8.0 H, Absolute Lymphs (auto) 2.45, Nucleated RBC % 0 12/27/21 06:50: Sodium 137, Potassium 3.5, Chloride 106, Carbon Dioxide 24.0, Anion Gap 7, BUN 12, Creatinine 0.94, Estim Creat Clear Calc 76.10, Est GFR (MDRD) Af Amer 108, Est GFR (MDRD) Non-Af 89, BUN/Creatinine Ratio 12.8, Glucose 128 H, Calcium 7.8 L 12/27/21 06:50: Hemoglobin A1c 8.2 H 12/27/21 11:53: POC Glucose 186 H Micro: Microbiology 12/26/21 18:55 Urine, Clean Catch Urine Culture - Preliminary Culture exhibits no growth. 12/26/21 17:25 Nasal Secretion SARS-CoV-2 Antigen (Rapid) - Final Radiography Diagnostic Testing: Radiology Impression Venous Duplex 12/26/21 17:23 IMPRESSION: There is no demonstrated deep venous thrombosis. 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 This appears chronic. Dedicated arterial duplex can evaluate fully. Electronically Signed: Trell Newsome MD at 20:03 EDT , Chest X-Ray 12/26/21 17:34 IMPRESSION: There are no acute findings. Electronically Signed: Trell Newsome MD at 17:44 EDT , Physical Exam Const alert, oriented x3, no apparent distress and well nourished Constitutional Narrative: Obese middle-aged white male who is sleeping in bed but awakens easily to name, appears comfortable and nontoxic Exam Limitations: no limitations Nutritional Appearance: obese HEENT head/scalp atraumatic and moist oral mucous membranes Head and Scalp: normocephalic Resp normal respiratory effort, no retractions, no use of accessory muscles and clear to auscultation bilaterally Auscultation: Negative for crackles, rales, rhonchi or wheezes Cardio regular rate, regular rhythm, S1 normal heart sound, S2 normal heart sound, no murmurs, no rub, no gallops, no clicks and no JVD GI normal to inspection, nondistended, normoactive bowel sounds, soft to palpation, non-tender and non-distended Extremity Extremity Narrative: Left lower edema with erythema inside circumscribed area extending into the medial left thigh-erythema has significantly retracted from outlined area made on admission, no cyanosis or clubbing Peripheral Pulses: Yes pulses 2+ throughout Neuro oriented x3, moves all extremities and no focal motor deficits Sensorium / Orientation: awake and alert Speech: speech normal Psych Psych Narrative: Affect is flat Assessment & Plan Assessment/Plan (1) Cellulitis: QUALIFIERS: Site of cellulitis: extremity Site of cellulitis of extremity: lower extremity Laterality: left Qualified Code(s): L03.116 - Cellu litis of left lower limb (2) Leukocytosis: PLAN: Left lower extremity cellulitis -Likely resultant from a wound on his left knee -Patient with uncontrolled diabetes -Clinically improved since admission with Zosyn/vancomycin -Blood cultures are pending -Continue broad-spectrum antibiotics and will likely discharge with Bactrim and a beta-lactamase -Patient is hopeful for discharge in the next 24 hours of possible -Clinically much improved Leukocytosis -Improving with antibiotics -18.1 on admission and now 12.0 -Repeat CBC in a.m. [id number] -Hemoglobin A1c is 8.3 -Patient is currently on Lantus 12 units at at bedtime as well as Metformin 500 mg twice daily -May need to consider increasing metformin to 1000 mg twice daily at discharge -Oral agents currently on hold -Continue SSI -Accu-Cheks before meals and at bedtime -Diabetic diet Hyperlipidemia -Continue rosuvastatin Peripheral vascular disease -We will have patient follow-up with Dr. 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
[2021-12-27] MEDS: Tamsulosin HCl 0.4 MG Capsule PO (16:58)
[2021-12-27 17:06] LABS: Bedside Glucose 196 mg/dL (74-106)
[2021-12-27] MEDS: Insulin Glargine-YFGN 100 UNIT/ML Pen 12 UNIT SC (21:37)
[2021-12-27] MEDS: Atorvastatin Calcium 40 MG Tablet PO ×2 (21:40→21:43)
[2021-12-27 21:51] LABS: Bedside Glucose 188 mg/dL (74-106)
[2021-12-28 03:49] VITALS: BP 144/80; PULSE 94; RESP 18; TEMP 36.8; O2SAT 98
[2021-12-28] MEDS: 0.9% Normal Saline 1,000 ML 75 ML IV (03:53)
[2021-12-28 06:21] LABS: Absolute Lymphocyte Count 2.42 X10^3/uL (0.83-4.51); Absolute Neutrophil Count 6.6 X10^3/uL (2.0-7.7); Basophil# 0.02 X10^3/uL; Basophil% 0.2 % (0-1); Eosinophil# 0.27 X10^3/uL; Eosinophils% 2.5 % (0-5); Hematocrit 44.2 % (40-54); Hemoglobin 15.3 g/dL (13.0-16.5); Lymphocyte # 2.42 X10^3/ul (0.83-4.51); Lymphocyte % 22.7 % (19-41); Mean Corp Hgb Conc 34.6 g/dL (32-36); Mean Corpuscular Hgb 29.8 pg (27.0-32.0); Mean Corpuscular Volume 86.2 fL (80-94); Mean Platelet Vol. 10.2 fl (6.2-12.0); Monocyte# 1.29 X10^3/uL; Monocyte% 12.1 % (0-10); NRBC Flagged by Analyzer 0 % (0-5); Neutrophil % 62.1 % (47-70); Platelet Count 186 K/mm3 (150-450); RBC Distribution Width CV 13.2 % (11.6-14.6); RBC Distribution Width SD 41.2 fl (35.1-43.9); Red Blood Count 5.13 M/mm3 (4.6-6.2); White Blood Count 10.6 K/mm3 (4.4-11.0)
[2021-12-28 06:41] LABS: Bedside Glucose 146 mg/dL (74-106)
[2021-12-28 06:48] LABS: Vancomycin, Trough Level 6.8 ug/mL (5.0-15.0)
[2021-12-28 07:54] VITALS: BP 117/80; PULSE 94; RESP 16; TEMP 36.6; O2SAT 99
--- NOTE | 2021-12-28 08:02 | PHA.PHARE_ITS ---
Consult Pharmacy has been consulted to manage selected antiobiotic: Vancomycin Type of Consult: Follow-up Suspected Infection: Skin/Soft tissue Prior Doses of Antibiotics Received/Current Regimen: current dose is 1500mg IV q12h Labs: Sodium 137 mmol/L (136-145) 12/27/21 06:50 Potassium 3.5 mmol/L (3.5-5.1) 12/27/21 06:50 Chloride 106 mmol/L (98-107) 12/27/21 06:50 Carbon Dioxide 24.0 mmol/L (21.0-32.0) 12/27/21 06:50 Anion Gap 7 (5-15) 12/27/21 06:50 BUN 12 mg/dL (7-18) 12/27/21 06:50 Creatinine 0.94 mg/dL (0.70-1.30) 12/27/21 06:50 Est GFR (MDRD) Af Amer 108 mL/min (>60) 12/27/21 06:50 Est GFR (MDRD) Non-Af 89 mL/min (>60) 12/27/21 06:50 BUN/Creatinine Ratio 12.8 RATIO (10-20) 12/27/21 06:50 Glucose 128 mg/dL (74-106) H 12/27/21 06:50 Vancomycin Trough 6.8 ug/mL (5.0-15.0) 12/28/21 05:30 Microbiology: Microbiology 12/26/21 18:55 Urine, Clean Catch Urine Culture - Preliminary Culture exhibits no growth. 12/26/21 17:25 Nasal Secretion SARS-CoV-2 Antigen (Rapid) - Final Weight used for dosin kg Estimated Creatinine Clearance: 98ml/min Goal Trough: 15-20 mcg/mL Pharmacy Plan for Drug Dosing: The vanc trough drawn at 05:30 today (approx 11 hours after the previous dose) came back as 6.8. This is well below goal range so will increase next dose to 2000mg IV q12h. Since this morning's 1500mg dose has already been given, will s tart the 2000mg in 8 hours at 14:00 today. Recheck a trough after the 4th new dose of 2000mg. The patient's CrCl of 98ml/min was calculated using an adjusted body weight of 76.5kg. Pharmacy Service will continue to monitor and adjust dosing as required. Follow-Up Labs: Trough Vancomycin Labs to be done on [date and time ordered]: 12/30/21 01:30
[2021-12-28 08:21] VITALS: O2SAT 99
[2021-12-28 08:30] VITALS: O2SAT 96
--- NOTE | 2021-12-28 09:31 | CASEMGMT ---
Addendum entered by Marielos Lujan 12/28/21 12:11: Faxed dc summary to [facility]. Addendum entered by Marielos Lujan 12/28/21 11:23: Received tc back from Zee at [facility], she states they will accept pt for services. Notified pt of this. Original Note: SHAVONNE CM in to pt room to discuss C SN for diabetic education. Pt agreeable to this. Patient was provided a list of C providers including quality and resource use data and consistent with the patient?s preferred geographic region, medical needs, and insurance network. Pt states he has no preference of agency. TC to Mukul at [facility], left message with referral and faxed at this time.
--- NOTE | 2021-12-28 11:02 | DS.PCM_ITS ---
Providers Date of Admission: 12/26/21 Date of Discharge: 12/28/21 Primary Care Physician: Dr. Jordyn Proctor MD Reason For Visit: CELLULITIS Diagnosis Discharge Diagnosis (1) Cellulitis: Status: Acute Code(s): L03.90 - Cellulitis, unspecified Qualifiers: Site of cellulitis: extremity Site of cellulitis of extremity: lower extremity Laterality: left Qualified Code(s): L03.116 - Cellulitis of left lower limb (2) Leukocytosis: Status: Acute Code(s): D72.829 - Elevated white blood cell count, unspecified Medications at Discharge Home Medications lancets #100 ea 01/31/21 blood-glucose meter #1 ea 03/08/21 pen needle, diabetic 31 gauge x 3/16 #50 ea 03/14/21 blood sugar diagnostic #100 ea 05/24/21 rosuvastatin 20 mg tablet 20 mg PO DAILY #90 tab 05/24/21 Lantus U-100 Insulin 12 unit SUBCUT QPM 12/26/21 amoxicillin-pot clavulanate [Augmentin XR] 1 tab PO BID #12 tab 12/28/21 metformin 1,000 mg PO BID #60 tab 12/28/21 sulfamethoxazole-trimethoprim [Bactrim DS] 1 tab PO BID #12 tab 12/28/21 Hospital Course Operations None Procedures - (Venous duplex) Summary of Care Provided Minutes Spent on Discharge: 38 Hospital Course: Mr. Rockwell is a 51-year-old male who is at history of diabetes and peripheral vascular disease who presented to the emergency department at [facility] on 12/26/2021 with redness in his left leg. He reported that it started with a cramping pain in his left leg and the pain did increase with stretching and weightbearing. He then developed erythema in the leg approximately 2 days ago that has progressively gotten worse. He reported chills and rigors upon presentation but he denied checking his temperature at home. He also reported some loss of appetite. He has a small scab on his left knee that he states he had with a fall. He states the erythema has progressively gotten worse and has moved up into his left thigh. He indicates that his blood sugars have been uncontrolled at home in the 300-3 50 range. He also admitted ongoing tobacco abuse. In the emergency department he had tachycardia and a temperature of 102.2. His CBC showed a white count of 18.1. His lactic acid was 2.0. Vancomycin and Zosyn were started in the emergency department. A Doppler of the lower extremities was performed and was negative for any DVTs. He was admitted to the medical floor where he was maintained on IV fluids, vancomycin, and Zosyn. He continued to have fevers until early in the morning on 12/27/2021 at which time his fevers resolved. With the initiation of antibiotics, his white count dropped from 18.1-12.0 within 24 hours and then had normalized by the a.m. of 12/28/2021. Blood cultures remain pending at discharge however were drawn going on 48 hours and no report has given I suspect these will be negative but we will follow up on these after discharge, as the patient is anxious to go. I will continue to cover him for MRSA as well as other organisms discharging him on Bactrim and Augmentin to complete a 7-day course. Hemoglobin A1c was obtained during his hospitalization was found to be 8.2. He indicated compliance with his home medications. We did increase his metformin from 500 twice daily to thousand twice daily and left him on his Lantus dose that he was currently on which was 12 units. We did discuss diabetes with the patient and the importance of blood sugar control especially related to infections as well as other endorgan issues. He met with a dietitian for recommendations related to his diet and he and I discussed the importance of diet and exercise with regards to his diabetes. With his known history of peripheral vascular disease, he was also recommended follow-up with Dr. Peña for reassessment with regards to this. It appears that he is supposed to be on aspirin for his peripheral vascular disease however he is not taking this. I did not initiate this at d ischarge as I am unclear why he is no longer taking this and he is not able to give me an answer but would recommend if there are no issues that he will restart this as an outpatient. He is to follow-up with his primary care physician within the next 1 to 2 weeks. We have also recommended he follow-up with Dr. Peña within the next month. He was discharged home in stable conditions and his prescriptions were faxed to local pharmacy. Discharge diagnoses: Left lower extremity cellulitis-improved Leukocytosis-resolved DM-2 uncontrolled with hemoglobin A1c of 8.3 Hyperlipidemia Peripheral vascular disease Hyponatremia-resolved Erythrocytosis-resolved Tobacco abuse-we discussed cessation Physical Exam Narrative Do so today.Patient states his left leg feels much better and feels that his r edness has reduced significantly. He is anxious to go home Const alert, oriented x3, no apparent distress and well nourished Constitutional Narrative: Obese middle-aged white male who is watching television, appears comfortable nontoxic General Appearance: cooperative, comfortable, well kempt and well developed Orientation / Consciousness: awake Exam Limitations: no limitations Nutritional Appearance: obese HEENT normocephalic, head/scalp atraumatic, hearing grossly normal bilaterally and moist oral mucous membranes HEENT Narrative: Dentition is fair, Mallampati is 3, no thrush Eyes PERRL, EOMs intact bilaterally and conjunctivae normal Neck no lymphadenopathy, supple and no JVD Neck Narrative: Trachea midline without thyroid enlargement Resp normal respiratory effort, no retractions, no use of accessory muscles and clear to auscultation bilaterally Resp Narrative: Diffusely diminished but clear Auscultation: Negative for crackles, rales, rhonchi or wheezes Cardio regular rate, regular rhythm, S1 normal heart sound, S2 normal heart sound, no murmurs, no rub, no gallops, no clicks and no JVD GI normal to inspection, nondistended, normoactive bowel sounds, soft to palpation, non-tender and non-distended Extremity Extremity Narrative: Left lower extremity edema significantly improved with erythema markedly reduced inside the demarcated area placed upon presentation, erythema is completely removed from the upper leg and now only focalized in the left lower leg on the anterior lateral surface, well-healing scabbed lesion on the anterior surface of the left knee Skin Skin Narrative: See above Neuro oriented x3, CN's II-XII intact bilaterally, moves all extremities and no focal motor deficits Sensorium / Orientation: awake and alert Speech: speech normal Psych affect normal Psych Narrative: More interactive today, interaction was appropriate Weight / BMI Weight Weight: 99 kg Body Mass Index (BMI) 36.3 ABG / Lab / Microbiology Data Result Diagrams: 12/28/21 05:30 12/27/21 06:50 Laboratory: Laboratory Results - last 24 hr 12/26/21 17:03: Diff Path Review Reviewed 12/27/21 11:53: POC Glucose 186 H 12/27/21 16:57: POC Glucose 196 H 12/27/21 21:34: POC Glucose 188 H 12/28/21 05:30: Vancomycin Trough 6.8 12/28/21 05:30: WBC 10.6, RBC 5.13, Hgb 15.3, Hct 44.2, MCV 86.2, MCH 29.8, MCHC 34.6, RDW Std Deviation 41.2, RDW Coeff of Maty 13.2, Plt Count 186, MPV 10.2, Immature Gran % (Auto) 0.400, Neut % (Auto) 62.1, Lymph % (Auto) 22.7, [place] % (Auto) 12.1 H, Eos % (Auto) 2.5, Baso % (Auto) 0.2, Absolute Neuts (auto) 6.6, Absolute Lymphs (auto) 2.42, Nucleated RBC % 0 12/28/21 06:05: POC Glucose 146 H Microbiology: Microbiology 12/26/21 18:55 Urine, Clean Catch Urine Culture - Final Mixed Gram Positive Organisms 12/26/21 17:25 Nasal Secretion SARS-CoV-2 Antigen (Rapid) - Final D/C Instructions Discharge Diet: Low fat / Low cholesterol and 1800 Calorie Control Diet Discharge Activity: Return to Normal Activity Return to work on: 12/29/21 Meaningful Use Info Meaningful Use Diagnoses (Choose all that apply): None applicable Discharge Plan Admission Admit Date/Time: 12/26/21 19:39 Primary Reason for Your Visit: Left lower extremity cellulitis Attending Provider: Marilu Katz Primary Care Provider: Jordyn Proctor Instructions Patient Instructions: Diabetes: Inspecting Your Feet, Diabetes: Caring for Your Body, Diabetes: Activity Tips, Diabetes Exercise Plan, Diabetes: Meal Planning, Diabetes Carbs Fats Protein, Diabetes PAD, ED Diabetes- Overview, Facts About Diabetes Discharge Orders/Prescriptions Prescriptions: New metformin 1,000 mg tablet 1,000 mg PO BID Qty: 60 RF: 0 sulfamethoxazole-trimethoprim [Bactrim DS] 800-160 mg tablet 1 tab PO BID Qty: 12 RF: 0 amoxicillin-pot clavulanate [Augmentin XR] 1,000-62.5 mg tablet extended release 12 hr 1 tab PO BID Qty: 12 RF: 0 Continued (DME) lancets Misc See Rx Instructions .ROUTE .MEDSUPPLY Qty: 100 RF: 1 (DME) blood-glucose meter [True Metrix Glucose Meter] Misc See Rx Instructions .ROUTE .MEDSUPPLY Qty: 1 RF: 0 (DME) True Metrix Glucose Test Strip Strip See Rx Instructions .ROUTE .MEDSUPPLY Qty: 100 RF: 5 rosuvastatin 20 mg tablet 20 mg PO DAILY Qty: 90 RF: 3 Lantus U-100 Insulin 100 unit/mL solution 12 unit subcut QPM RF: 0 (DME) pen needle, diabetic [Easy Comfort Pen [place]] 31 gauge x 3/16 needle See Rx Instructions .ROUTE .MEDSUPPLY Qty: 50 RF: 1 Discontinued metformin 500 mg tablet 500 mg PO BID Qty: 180 RF: 3 Referrals / Follow Up: Renard Peña MD [STAFF PHYSICIAN] - Within 1 Month Jordyn Proctor MD [Primary Care Provider] - Within 1 Week Disposition Disposition (needs filled in before D/C Order can be placed): Home Health Service Charges/Coding Visit Charges Inpatient E&M: 54268 Disch Hosp
[2021-12-28 11:40] VITALS: BP 141/85; PULSE 102; RESP 16; TEMP 37.3; O2SAT 99
== END 2021-12-28 12:07 | disposition home health service (06) | DRG 383 ==
LOC: ED 17:11 → MS3 12-27 06:59
PROVIDERS: Admitting Provider Hospitalist; Emergency Provider Student in an Organized Health Care Education/Training Program; PCP Internal Medicine; Visit Provider Internal Medicine
DX: L03.116 Cellulitis of left lower limb (principal); E11.51 Type 2 diabetes mellitus with diabetic peripheral angiopathy without gangrene; E11.65 Type 2 diabetes mellitus with hyperglycemia; Z79.4 Long term (current) use of insulin; E87.1 Hypo-osmolality and hyponatremia; B95.62 Methicillin resistant Staphylococcus aureus infection as the cause of diseases classified elsewhere; E78.5 Hyperlipidemia, unspecified; F17.210 Nicotine dependence, cigarettes, uncomplicated; F12.90 Cannabis use, unspecified, uncomplicated; Z79.01 Long term (current) use of anticoagulants; R00.0 Tachycardia, unspecified; S81.012A Laceration without foreign body, left knee, initial encounter; R39.11 Hesitancy of micturition; X58.XXXA Exposure to other specified factors, initial encounter
CPT/HCPCS: 36415; 71045; 80048; 80053; 80202; 81001; 82962; 83036; 83605; 84484; 85025; 85610; 85730; 87040; 87086; 87088; 87811; 93005; 93971; 96361; 96365; 96366; 96367; 96372; 96375; 97803; 99218; 99285; 99406; J7030; J7040; J7050; A4216; G0378; J2405; J3490

== ENCOUNTER → 2022-02-01 | Outpatient (CLI) | payer MEDICAID, SELFPAY ==
--- NOTE | 2022-02-01 17:45 | MRI_ITS ---
STUDY: MRI ABDOMEN WITH AND WITHOUT CONTRAST REASON FOR EXAM: Male, 51 years old. Pancreatic mass TECHNIQUE: Standardized fat and water weighted pulse sequences were obtained in all 3 orthogonal planes post contrast administration. IV Dotarem 18mL was administered for the contrast portion of the examination. COMPARISON: 02/22/2021. FINDINGS: The visualized lung bases are unremarkable. The visualized portions of the heart are within normal limits. There is a marked decrease in the signal intensity of the liver on the axial T1-weighted images on the opposed-phase images as compared to the in-phase images, consistent with diffuse steatosis. Normal gallbladder and extrahepatic biliary system. Normal spleen. Normal pancreas. Normal bilateral adrenal glands. Normal right kidney. Normal left kidney. Normal visualized stomach. Normal small intestine. Normal colon. There is diffuse atherosclerotic calcification of the abdominal aorta, without a demonstrated aneurysm. Normal inferior vena cava. Normal retroperitoneum. Normal abdominal wall. Normal osseous structures. MRI/MRI Abd WITH and W/O Contrast IMPRESSION: Previously described cystic lesion in the uncinate process of the pancreas is no longer visualized. No abnormalities in the abdomen. Electronically Signed: Greg Draper MD at 21:18 EDT ,
== END | disposition home or self-care (01) ==
LOC: MRI 17:27
PROVIDERS: PCP Internal Medicine; Visit Provider Internal Medicine
DX: K86.89 Other specified diseases of pancreas (principal)
CPT/HCPCS: 74183; A9575; A4216

== ENCOUNTER → 2022-05-05 | Outpatient (CLI) | payer MEDICAID, SELFPAY ==
--- NOTE | 2022-05-05 14:56 | CT_ITS ---
EXAM: CT ANGIOGRAPHY ABDOMEN AND PELVIS WITH RUNOFF TO THE LOWER EXTREMITIES WITH INTRAVENOUS CONTRAST CLINICAL INDICATION: ATHEROSCLEROSIS TECHNIQUE: Helically acquired angiography images were obtained of the abdomen, pelvis and lower extremities with intravenous contrast using CTA runoff protocol. This CT exam was performed using one or more of the following dose reduction techniques: automated exposure control, adjustment of the mA and/or kV according to patient size, and/or use of iterative reconstruction technique. This report was created using [employer] report generation technology. MIP reconstructed images were created and reviewed. CONTRAST: IV 100mL [id number] COMPARISON: None. FINDINGS: VASCULATURE: AORTA: No acute findings. Normal caliber abdominal aorta. No occlusion or significant stenosis. No dissection. CELIAC TRUNK AND MESENTERIC ARTERIES: No acute findings. No occlusion or significant stenosis. No dissection. RENAL ARTERIES: No acute findings. No occlusion or significant stenosis. No dissection. RIGHT ILIAC ARTERIES: No acute findings. No occlusion or significant stenosis. No dissection. RIGHT FEMORAL/POPLITEAL ARTERIES: The right superficial femoral artery very small in caliber at its origin. There is occlusion of the right superficial femoral artery approximately 8 cm from its origin. The vessel prior to that point very small in caliber. The right superficial femoral artery reconstitutes approximately 17 cm above the knee joint. The popliteal arteries are patent bilaterally. There is good three-vessel runoff to both ankles. RIGHT CALF/FOOT ARTERIES: See above. LEFT ILIAC ARTERIES: No acute findings. No occlusion or significant stenosis. No dissection. LEFT FEMORAL/POPLITEAL ARTERIES: There is an occlusion of the left superficial femoral artery at its origin with reconstitution approximately 14 cm above the left knee joint. LEFT CALF/FOOT ARTERIES: See above. LOWER THORAX: Unremarkable. Lung bases are clear. No cardiomegaly. No significant pericardial effusion. ABDOMEN: LIVER: Unremarkable. Homogeneous. No focal mass. GALLBLADDER AND BILE DUCTS: Unremarkable. No calcified gallstones. No gallbladder distention or wall edema. No intra- or extrahepatic biliary ductal dilation. PANCREAS: Unremarkable. No focal cystic or solid mass. SPLEEN: Unremarkable. Normal size without focal cystic or solid mass. ADRENALS: Unremarkable. No nodules. KIDNEYS AND URETERS: Unremarkable. Normal renal size and position. No hydronephrosis. STOMACH AND BOWEL: Unremarkable. No stomach or bowel distention. No focal inflammatory change. PELVIS: APPENDIX: No evidence of acute appendicitis. BLADDER: Unremarkable. REPRODUCTIVE: Unremarkable as visualized. No mass. ABDOMEN, PELVIS and LOWER EXTREMITIES: INTRAPERITONEAL SPACE: Unremarkable. No ascites or other fluid collection. No free air. BONES/JOINTS: Unremarkable. No suspicious lytic or blastic abnormality. SOFT TISSUES: Unremarkable. No discrete abdominal or pelvic wall hernia. LYMPH NODES: Unremarkable. No enlarged lymph nodes. CT/CTA Abd w/Runoff W/WO Contrast IMPRESSION: 1. Occlusion of the right superficial femoral artery approximately 8 cm from its origin with a vessel reconstituting approximately 17 cm above the knee. The right popliteal artery is patent and there is good three-vessel runoff to the right ankle. 2. Occlusion of the left superficial femoral artery at its origin with the vessel reconstituting approximately 14 cm above the left knee. The left popliteal artery is patent and there is good three-vessel runoff in the left ankle. Electronically Signed: Jj Beebe MD at 10:39 EDT ,
[2022-05-05 15:35] LABS: CREATININE FINGERSTICK < 0.9 mg/dL (0.70-1.30); EGFR FINGERSTICK > 60.0000 mL/min (>60)
== END | disposition home or self-care (01) ==
LOC: CT 14:55
PROVIDERS: PCP Internal Medicine; Referring Provider Surgery Vascular Surgery; Visit Provider Surgery Vascular Surgery
DX: I70.213 Atherosclerosis of native arteries of extremities with intermittent claudication, bilateral legs (principal); I77.1 Stricture of artery; I70.0 Atherosclerosis of aorta; E11.9 Type 2 diabetes mellitus without complications; M79.606 Pain in leg, unspecified; Z87.19 Personal history of other diseases of the digestive system; F17.200 Nicotine dependence, unspecified, uncomplicated; E78.00 Pure hypercholesterolemia, unspecified; I10 Essential (primary) hypertension
CPT/HCPCS: 75635; Q9967

== ENCOUNTER → 2022-09-06 | Outpatient (CLI) | payer MEDICAID, SELFPAY ==
[2022-09-06 11:50] LABS: Absolute Lymphocyte Count 3.69 X10^3/uL (0.83-4.51); Absolute Neutrophil Count 8.5 X10^3/uL (2.0-7.7); Basophil# 0.07 X10^3/uL; Basophil% 0.5 % (0-1); Eosinophil# 0.36 X10^3/uL; Eosinophils% 2.6 % (0-5); Hematocrit 46.3 % (40-54); Hemoglobin 16.3 g/dL (13.0-16.5); Lymphocyte # 3.69 X10^3/ul (0.83-4.51); Mean Corp Hgb Conc 35.2 g/dL (32-36); Mean Corpuscular Hgb 31.5 pg (27.0-32.0); Mean Corpuscular Volume 89.6 fL (80-94); Mean Platelet Vol. 10.4 fl (6.2-12.0); Monocyte# 0.97 X10^3/uL; Monocyte% 7.1 % (0-10); NRBC Flagged by Analyzer 0 % (0-5); Neutrophil # 8.49 X10^3/uL (2.7-7.7); Neutrophil % 62.1 % (47-70); Platelet Count 279 K/mm3 (150-450); RBC Distribution Width CV 12.5 % (11.6-14.6); Red Blood Count 5.17 M/mm3 (4.6-6.2); White Blood Count 13.7 K/mm3 (4.4-11.0)
[2022-09-06 13:16] LABS: Hemoglobin A1c 8.3 % (3.8-5.6)
== END | disposition home or self-care (01) ==
LOC: LAB 11:09
PROVIDERS: PCP Internal Medicine; Referring Provider Internal Medicine; Visit Provider Internal Medicine
DX: E11.42 Type 2 diabetes mellitus with diabetic polyneuropathy (principal); F10.11 Alcohol abuse, in remission; Z72.0 Tobacco use; Z12.5 Encounter for screening for malignant neoplasm of prostate
CPT/HCPCS: 84153; 80053; 80061; 36415; 83036; 85025; G0103

== ENCOUNTER → 2022-09-07 | Outpatient (CLI) | payer MEDICAID, SELFPAY ==
[2022-09-07 14:33] LABS: ALB/GLOB Ratio 0.8 RATIO (0.9-2.4); AST(SGOT) 18 U/L (15-37); Alanine Aminotransfer ALT/SGPT 42 U/L (16-61); Albumin, Serum 3.3 g/dL (3.2-5.0); Alkaline Phosphatase 73 U/L (45-117); Anion Gap 6 (5-15); BUN 12 mg/dL (7-18); BUN/Creat Ratio 11.9 RATIO (10-20); Calcium,Total 8.6 mg/dL (8.5-10.1); Chloride 101 mmol/L (98-107); Cholesterol 163 mg/dL (200); Creatinine, Serum 1.01 mg/dL (0.70-1.30); EST Glomerular Filtration Rate 82 mL/min (>60); Est Glom Filt Rate - Afr Amer 99 mL/min (>60); Globulin 4.1 g/dL (2.2-4.2); Glucose 221 mg/dL (74-106); High Density Lipoprotein 27 mg/dL; Potassium 3.6 mmol/L (3.5-5.1); Protein, Total 7.4 g/dL (6.4-8.2); Sodium Level 137 mmol/L (136-145); Thyroid Stim Hormone (TSH) 0.76 uIU/mL (0.358-3.74); Triglycerides 638 mg/dL
== END | disposition home or self-care (01) ==
LOC: LAB 12:52
PROVIDERS: PCP Internal Medicine; Referring Provider Internal Medicine; Visit Provider Internal Medicine
DX: K86.89 Other specified diseases of pancreas (principal); E11.42 Type 2 diabetes mellitus with diabetic polyneuropathy; L03.116 Cellulitis of left lower limb; K85.90 Acute pancreatitis without necrosis or infection, unspecified; F10.11 Alcohol abuse, in remission; Z72.0 Tobacco use; Z12.5 Encounter for screening for malignant neoplasm of prostate
CPT/HCPCS: 84153; 36415; 80053; 80061; 82306; 84443; G0103

== ENCOUNTER → 2023-06-20 | Outpatient (CLI) | payer MEDICAID, SELFPAY ==
--- NOTE | 2023-06-20 14:40 | NEURO ---
NCS and/or EMG Patient Report Ordering Doctor: Leonidas Rodriguez DATE OF SERVICE: 06/20/23 Cameron presents for electrodiagnostic testing of the left upper limb. He reports numbness and tingling in the left hand as well as pain in the left arm. Electrodiagnostic findings: Left median motor nerve demonstrates prolonged latency with normal amplitude and reduced conduction velocity. Normal left ulnar motor response, including conduction across the elbow. Prolonged left median sensory latency at the wrist. Normal left median and ulnar F?waves. Needle EMG testing was performed in the left upper limb. All muscles tested showed no evidence of denervation with normal motor unit action potentials. Electrodiagnostic assessment: This is an abnormal study in the left upper limb. 1. Electrodiagnostic findings suggestive of left-sided median mononeuropathy. This is consistent with moderate left carpal tunnel syndrome. 2. No electrodiagnostic evidence is noted for cervical radiculopathy.
== END | disposition home or self-care (01) ==
LOC: PSN 13:15
PROVIDERS: PCP Internal Medicine; Referring Provider Orthopaedic Surgery; Visit Provider Orthopaedic Surgery
DX: M79.602 Pain in left arm (principal); G56.22 Lesion of ulnar nerve, left upper limb; M25.512 Pain in left shoulder; G89.29 Other chronic pain
CPT/HCPCS: 95886; 95909